=== PATIENT | female | born 1945 | race Caucasian/White ===

== ENCOUNTER 2018-05-12 14:48 | Emergency (ER) | payer MEDICARE, BC ==
[~2018-05-12] VITALS: Ht 165.1 cm; Wt 84.5 kg
[~2018-05-12 14:48] MED LIST: APIX5TAB3 PO; CARSR60C PO; FERR1TAB9 PO; LISI40TA4 PO; OMEP20CA10 PO
[2018-05-12] MEDS ORDERED: ondansetron 4mg rapidly disintigrating tab PO ONE (16:10)
[2018-05-12] MEDS ORDERED: acetaminophen 325mg tablet PO ONE (16:10)
[2018-05-12] MEDS ORDERED: morphine 4 MG/ML inj SYRINge IM ONE (17:10)
[2018-05-12 17:37] VITALS: BP 192/98
[2018-05-12] MEDS ORDERED: ONDA8TAB9 PO (17:44)
== END 2018-05-12 17:46 | disposition home or self-care (01) ==
LOC: ER 14:49
DX: S06.0X0A Concussion without loss of consciousness, initial encounter (principal); S00.33XA Contusion of nose, initial encounter; I10 Essential (primary) hypertension; J45.909 Unspecified asthma, uncomplicated; Z98.890 Other specified postprocedural states; Z79.899 Other long term (current) drug therapy; Z88.5 Allergy status to narcotic agent; W18.49XA Other slipping, tripping and stumbling without falling, initial encounter; Y93.89 Activity, other specified; Y92.091 Bathroom in other non-institutional residence as the place of occurrence of the external cause; Y99.8 Other external cause status
CPT/HCPCS: 70450; 72125; 96372; 99284; J2270

== ENCOUNTER 2020-07-24 10:15 | Emergency (ER) | payer MEDICARE, BC ==
[~2020-07-24] VITALS: Ht 165.1 cm; Wt 87.3 kg
[~2020-07-24 10:15] MED LIST changes: -OMEP20CA10 PO; +OMEP20CA15 PO; +ONDA8TAB9 PO
[2020-07-24] MEDS ORDERED: lisinopril 10 MG tablet PO ONE (11:05)
[2020-07-24] MEDS ORDERED: LISI10TA4 PO (11:07)
--- NOTE | 2020-07-24 11:24 | NUR ---
TAWANDA (SON) [phone] PLEASE GIVE UPDATE WHEN ABLE.
[2020-07-24 13:24] VITALS: BP 181/90
== END 2020-07-24 13:29 | disposition home or self-care (01) ==
LOC: ER 10:15
DX: S00.11XA Contusion of right eyelid and periocular area, initial encounter (principal); M25.531 Pain in right wrist; M25.561 Pain in right knee; I25.10 Atherosclerotic heart disease of native coronary artery without angina pectoris; I10 Essential (primary) hypertension; J45.909 Unspecified asthma, uncomplicated; F41.9 Anxiety disorder, unspecified; Z85.41 Personal history of malignant neoplasm of cervix uteri; Z98.890 Other specified postprocedural states; Z88.5 Allergy status to narcotic agent; Z79.899 Other long term (current) drug therapy; W18.39XA Other fall on same level, initial encounter; Y93.01 Activity, walking, marching and hiking; Y92.89 Other specified places as the place of occurrence of the external cause; Y99.8 Other external cause status
CPT/HCPCS: 29125; 70450; 70486; 72125; 73110; 73564; 99285

== ENCOUNTER 2021-01-07 15:16 | Emergency (ER) | payer MEDICARE, BC ==
[~2021-01-07] VITALS: Ht 165.1 cm; Wt 87.0 kg
[~2021-01-07 15:16] MED LIST changes: +LISI10TA27 PO; +LISI40TA13 PO; -LISI40TA4 PO
[2021-01-07] MEDS ORDERED: labetalol 20mg/4ml (5mg/ml) syringe IV ONE (16:40)
[2021-01-07 17:06] LABS: BASOPHILS # (AUTO) 0.1 X10'3 (0-0.2); BASOPHILS % (AUTO) 0.9 % (0-1); EOSINOPHILS # (AUTO) 0.3 X10'3 (0-0.9); EOSINOPHILS % (AUTO) 4.9 % (0-6); HEMATOCRIT 40.7 % (35.0-45.0); HEMOGLOBIN 13.2 g/dl (12.0-16.0); LYMPHOCYTES # (AUTO) 0.9 X10'3 (1.1-4.8); LYMPHOCYTES % (AUTO) 14.9 % (21-51); MEAN CORPUSCULAR HEMOGLOBIN 28.1 PG (27.0-31.0); MEAN CORPUSCULAR HGB CONC 32.4 g/dL (33.0-36.5); MEAN CORPUSCULAR VOLUME 86.7 FL (78-98); MEAN PLATELET VOLUME 8.9 FL (7.4-10.4); MONOCYTES # (AUTO) 0.5 X10'3 (0-0.9); MONOCYTES % (AUTO) 8.5 % (2-12); NEUTROPHILS # (AUTO) 4.4 X10'3 (1.8-7.7); NEUTROPHILS % (AUTO) 70.8 % (42-75); PLATELET COUNT 303 X10'3 (140-440); RED BLOOD COUNT 4.69 X10'6 (4.20-5.60); RED CELL DISTRIBUTION WIDTH 17.1 % (11.5-14.5); WHITE BLOOD COUNT 6.2 X10'3 (4.5-11.0)
[2021-01-07 17:13] LABS: ALANINE AMINOTRANSFERASE 16 U/L (12-78); ALBUMIN 4.1 G/DL (3.4-5.0); ALKALINE PHOSPHATASE 90 IU/L (46-116); ANION GAP 6 (8-16); ASPARTATE AMINO TRANSFERASE 18 U/L (10-37); BILIRUBIN,TOTAL 0.3 MG/DL (0.1-1.0); BLOOD UREA NITROGEN 15 MG/DL (7-18); BUN/CREATININE RATIO 19.5 (6.6-38.0); CALCIUM 9.5 MG/DL (8.5-10.1); CHLORIDE 104 MMOL/L (99-107); CREATININE 0.77 MG/DL (0.40-0.90); GLUCOSE 105 MG/DL (70-104); SODIUM 141 MMOL/L (135-145); TOTAL CARBON DIOXIDE 30.6 MMOL/L (24-32); TOTAL PROTEIN 8.3 G/DL (6.4-8.2); eGFR 73 ML/MIN
[2021-01-07] MEDS ORDERED: cloNIDine 0.1 mg tablet PO ONE (17:35)
[2021-01-07] MEDS ORDERED: morphine 4 MG/ML inj SYRINge IV ONE (17:40)
--- NOTE | 2021-01-07 17:42 | NUR ---
SCANNER IN ROOM 13 NOT WORKING
--- NOTE | 2021-01-07 18:05 | NUR ---
HEADCHES STARTED ABOUT 2 WEEKS AGO, USUALLY BETTER WITH OTC TYLENOL
[2021-01-07] MEDS ORDERED: famotidine/PF 10 mg/ml inj IV ONE (18:35)
[2021-01-07] MEDS ORDERED: ondansetron/PF 4mg/2ml inj IV ONE (18:45)
--- NOTE | 2021-01-07 18:51 | NUR ---
SIMON BONILLA INFORMED PATIETN IS NAUSEATED AND DIZZY FEELING, ORDERS
[2021-01-07] MEDS ORDERED: normal saline 1000ml 1,000 ML IV ONE ×2 (18:55→20:05)
--- NOTE | 2021-01-07 18:55 | NUR ---
PA AWARE OF BP, ORDERS RECEIVED
--- NOTE | 2021-01-07 20:05 | NUR ---
DISCUSSED CURRENT VITALS WITH MD VELARDE
[2021-01-07 21:25] VITALS: BP 131/71
== END 2021-01-07 21:27 | disposition home or self-care (01) ==
LOC: ER 15:17
DX: I10 Essential (primary) hypertension (principal); R51.9 Headache, unspecified; R11.0 Nausea; R06.02 Shortness of breath; R53.83 Other fatigue; I25.10 Atherosclerotic heart disease of native coronary artery without angina pectoris; J45.909 Unspecified asthma, uncomplicated; F41.9 Anxiety disorder, unspecified; Z85.41 Personal history of malignant neoplasm of cervix uteri; Z98.890 Other specified postprocedural states; Z88.5 Allergy status to narcotic agent; Z79.899 Other long term (current) drug therapy
CPT/HCPCS: 36415; 70450; 71045; 80053; 83880; 84484; 85025; 93005; 96361; 96374; 96375; 99285; J2270; J2405; J3490; J7030

== ENCOUNTER 2022-02-07 06:05 | Inpatient (IN) | payer MEDICARE, BC ==
[~2022-02-07] VITALS: Ht 162.6 cm; Wt 81.8 kg
[2022-02-07] MEDS ORDERED: morphine 4 MG/ML inj SYRINge IV ONE (06:10)
[2022-02-07] MEDS ORDERED: aspirin 81mg tab.chew PO ONE (06:10)
[2022-02-07] MEDS ORDERED: normal saline 1000ml 1,000 ML IV ONE (06:10)
[2022-02-07] MEDS ORDERED: diltiazem 5mg/ml 5ml inj. IV ONE (06:10)
[2022-02-07] MEDS ORDERED: heparin 10,000 units/1 ML INJ IV ONE (06:20)
[2022-02-07] MEDS ORDERED: heparin 25,000 UNIT/250ml bag 250 ML IV SCH (06:20)
[2022-02-07] MEDS ORDERED: heparin 10,000 units/1 ML INJ IV PRN (06:20)
[2022-02-07] MEDS ORDERED: fentaNYL/PF 50MCG/1 ML 2ML syringe IV ONE (06:25)
[2022-02-07] MEDS ORDERED: LIDOcaine 1% 30ml preserv. free vial ONE (06:35)
[2022-02-07] MEDS ORDERED: heparin 1,000unit/ml 10ml vial 10 ML ONE (06:35)
[2022-02-07] MEDS ORDERED: IOHEXOL 350 MG/ML INFUS..BTL 125ML IV ONE ×2 (06:36→07:19)
[2022-02-07 06:43] LABS: EOSINOPHILS # (AUTO) 0.2 X10'3 (0-0.9); EOSINOPHILS % (AUTO) 4.9 % (0-6); HEMATOCRIT 31.8 % (35.0-45.0); HEMOGLOBIN 10.1 g/dl (12.0-16.0); MEAN CORPUSCULAR HEMOGLOBIN 27.8 PG (27.0-31.0); MEAN CORPUSCULAR HGB CONC 31.8 g/dL (33.0-36.5); MEAN CORPUSCULAR VOLUME 87.3 FL (78-98); MEAN PLATELET VOLUME 8.4 FL (7.4-10.4); MONOCYTES # (AUTO) 0.5 X10'3 (0-0.9); NEUTROPHILS # (AUTO) 2.9 X10'3 (1.8-7.7); NEUTROPHILS % (AUTO) 62.1 % (42-75); PLATELET COUNT 220 X10'3 (140-440); RED BLOOD COUNT 3.64 X10'6 (4.20-5.60); RED CELL DISTRIBUTION WIDTH 18.1 % (11.5-14.5); WHITE BLOOD COUNT 4.6 X10'3 (4.5-11.0)
[2022-02-07] MEDS ORDERED: nitroGLYCERIN-Tridil 50MG/D5W 250 ML IV ONE (06:47)
[2022-02-07] MEDS ORDERED: fentaNYL/PF 50MCG/1 ML 2ML syringe ONE (06:47)
[2022-02-07] MEDS ORDERED: verapamil 2.5 mg/ml inj IV ONE (06:47)
[2022-02-07] MEDS ORDERED: midazolam 1 mg/ML 2ml injection ONE (06:47)
--- NOTE | 2022-02-07 06:53 | NUR ---
laboratory scientist RN's at bedside.
[2022-02-07 07:24] LABS: ALANINE AMINOTRANSFERASE 9 U/L (12-78); ALBUMIN 2.3 G/DL (3.4-5.0); ALKALINE PHOSPHATASE 38 IU/L (46-116); ASPARTATE AMINO TRANSFERASE 14 U/L (10-37); BILIRUBIN,TOTAL 0.1 MG/DL (0.1-1.0); BLOOD UREA NITROGEN 14 MG/DL (7-18); BUN/CREATININE RATIO 34.1 (6.6-38.0); CHLORIDE 117 MMOL/L (99-107); CREATININE 0.41 MG/DL (0.40-0.90); GLUCOSE 99 MG/DL (70-104); MAGNESIUM 1.3 MG/DL (1.5-2.4); TOTAL CARBON DIOXIDE 21.1 MMOL/L (24-32); TOTAL PROTEIN 4.7 G/DL (6.4-8.2); eGFR > 90 ML/MIN
[2022-02-07] MEDS ORDERED: ticagrelor 90mg tablet ONE (07:25)
[2022-02-07 07:35] LABS: ANION GAP 7 (8-16); SODIUM 145 MMOL/L (135-145)
[2022-02-07 07:39] LABS: POTASSIUM 2.6 MMOL/L (3.5-5.1)
[2022-02-07 07:40] LABS: CALCIUM 5.8 MG/DL (8.5-10.1)
[2022-02-07] MEDS ORDERED: potassium Cl 20mEq/100mL bag 0 ML IV ONE (07:41)
[2022-02-07] MEDS ORDERED: POTASSIUM BICARB 20meq eff tab 20 MEQ TABLET.EFF PO ONE (07:45)
[2022-02-07] MEDS ORDERED: heparin 10,000 units/1 ML INJ ONE (08:00)
[2022-02-07] MEDS ORDERED: heparin, porcine-25,000 units/D5-250ml premix IV ONE (08:00)
[2022-02-07] MEDS ORDERED: acetaminophen 325mg tablet PO PRN ×3 (08:45→09:50)
[2022-02-07] MEDS ORDERED: ondansetron/PF 4mg/2ml inj IV PRN (09:50)
[2022-02-07] MEDS ORDERED: POTASSIUM BICARB 20meq eff tab 20 MEQ TABLET.EFF PO PRN ×2 (09:50)
[2022-02-07] MEDS ORDERED: magnesium Cl slow-release 64mg tablet PO PRN (09:50)
[2022-02-07] MEDS ORDERED: magnesium hydroxide 30ml (MOM) UD suspension PO PRN (09:50)
[2022-02-07] MEDS ORDERED: magnesium 2GM in 50ml NS 50 ML IV PRN (09:50)
[2022-02-07] MEDS ORDERED: potassium CL 10mEq/100ml bag 100 ML IV PRN (09:50)
[2022-02-07] MEDS ORDERED: magnesium 4gm in 100ml NS 100 ML IV PRN (09:50)
[2022-02-07] MEDS ORDERED: mag hydrox/Alum hydrox/simeth 30ml oral suspension PO PRN (09:50)
[2022-02-07 10:57] LABS: ALANINE AMINOTRANSFERASE 9 U/L (12-78); ALBUMIN 3.4 G/DL (3.4-5.0); ALKALINE PHOSPHATASE 56 IU/L (46-116); ANION GAP 8 (8-16); ASPARTATE AMINO TRANSFERASE 15 U/L (10-37); BILIRUBIN,TOTAL 0.3 MG/DL (0.1-1.0); BLOOD UREA NITROGEN 14 MG/DL (7-18); BUN/CREATININE RATIO 31.1 (6.6-38.0); CALCIUM 8.3 MG/DL (8.5-10.1); CHLORIDE 106 MMOL/L (99-107); CREATININE 0.45 MG/DL (0.40-0.90); GLUCOSE 121 MG/DL (70-104); POTASSIUM 4.5 MMOL/L (3.5-5.1); SODIUM 139 MMOL/L (135-145); TOTAL CARBON DIOXIDE 25.3 MMOL/L (24-32); TOTAL PROTEIN 6.7 G/DL (6.4-8.2); eGFR > 90 ML/MIN
[2022-02-07 11:00] VITALS: BP 135/78
[2022-02-07 11:01] LABS: PHOSPHORUS 2.8 MG/DL (2.3-4.5)
[2022-02-07 11:16] LABS: CHOL/HDL RATIO 3.5 (0.00-4.99); CHOLESTEROL 169 MG/DL (0-200); HDL CHOLESTEROL 48 MG/DL (35-60); LDL CHOLESTEROL 102 MG/DL (50-100); TRIGLYCERIDES 54 MG/DL (20-135)
[2022-02-07 11:17] LABS: APTT 112 SECONDS (22-32)
--- NOTE | 2022-02-07 11:25 | NUR ---
ROOM 3026A LAB CALLED CRITICAL PTT 112 TROPONIN 461 BUT SHE JUST HAD CATH DONE FYI.
[2022-02-07] MEDS ORDERED: APIX5TAB3 PO (14:31)
[2022-02-07] MEDS ORDERED: ATOR20TA66 PO (14:31)
[2022-02-07] MEDS ORDERED: METO-395 PO (14:31)
[2022-02-07] MEDS ORDERED: ASPI81TA53 PO (14:31)
[2022-02-07] MEDS ORDERED: TICA90TA PO (14:31)
[2022-02-07 15:00] VITALS: BP 194/92
[2022-02-07] MEDS ORDERED: albuterol 2.5 MG/3 ML nebule NEB PRN (15:35)
[2022-02-07 18:00] VITALS: BP 150/90
--- NOTE | 2022-02-07 18:37 | NUR ---
Patient in room PCU 3026. I have received report from Hector MO and had the opportunity to ask questions and assume patient care.
[2022-02-07] MEDS: K and/or MAG REPLACEMENT MC SCH (20:00)
[2022-02-07] MEDS ORDERED: K and/or MAG REPLACEMENT MC SCH (20:00)
[2022-02-07] MEDS: ticagrelor 90mg tablet PO SCH (20:26)
[2022-02-07] MEDS: docusate sod 100mg capsule PO SCH (20:26)
[2022-02-07 22:00] VITALS: BP 151/90
[2022-02-08 02:00] VITALS: BP 133/85
[2022-02-08 06:00] VITALS: BP 134/82
--- NOTE | 2022-02-08 06:20 | NUR ---
Problems reprioritized. Patient report given, questions answered & plan of care reviewed with august gaona.
[2022-02-08 07:17] LABS: BASOPHILS % (AUTO) 0.8 % (0-1); EOSINOPHILS # (AUTO) 0.1 X10'3 (0-0.9); EOSINOPHILS % (AUTO) 2.4 % (0-6); HEMATOCRIT 38.9 % (35.0-45.0); HEMOGLOBIN 12.3 g/dl (12.0-16.0); LYMPHOCYTES # (AUTO) 0.5 X10'3 (1.1-4.8); LYMPHOCYTES % (AUTO) 11.7 % (21-51); MEAN CORPUSCULAR HEMOGLOBIN 27.6 PG (27.0-31.0); MEAN CORPUSCULAR HGB CONC 31.8 g/dL (33.0-36.5); MEAN CORPUSCULAR VOLUME 86.8 FL (78-98); MEAN PLATELET VOLUME 8.7 FL (7.4-10.4); MONOCYTES # (AUTO) 0.4 X10'3 (0-0.9); NEUTROPHILS # (AUTO) 3.6 X10'3 (1.8-7.7); NEUTROPHILS % (AUTO) 76.1 % (42-75); PLATELET COUNT 231 X10'3 (140-440); RED BLOOD COUNT 4.48 X10'6 (4.20-5.60); RED CELL DISTRIBUTION WIDTH 18.5 % (11.5-14.5); WHITE BLOOD COUNT 4.7 X10'3 (4.5-11.0)
[2022-02-08] MEDS ORDERED: pantoprazole 40mg Tablet.DR PO SCH (07:30)
[2022-02-08 07:31] LABS: ALANINE AMINOTRANSFERASE 14 U/L (12-78); ALBUMIN 3.4 G/DL (3.4-5.0); ALBUMIN/GLOBULIN RATIO 0.9 (1.1-1.5); ALKALINE PHOSPHATASE 56 IU/L (46-116); ANION GAP 8 (8-16); ASPARTATE AMINO TRANSFERASE 26 U/L (10-37); BILIRUBIN,TOTAL 0.3 MG/DL (0.1-1.0); BLOOD UREA NITROGEN 14 MG/DL (7-18); BUN/CREATININE RATIO 24.6 (6.6-38.0); CALCIUM 8.7 MG/DL (8.5-10.1); CHLORIDE 108 MMOL/L (99-107); CHOL/HDL RATIO 3.7 (0.00-4.99); CHOLESTEROL 257 MG/DL (0-200); CREATININE 0.57 MG/DL (0.40-0.90); GLUCOSE 108 MG/DL (70-104); HDL CHOLESTEROL 69 MG/DL (35-60); LDL CHOLESTEROL 146 MG/DL (50-100); MAGNESIUM 1.8 MG/DL (1.5-2.4); POTASSIUM 3.6 MMOL/L (3.5-5.1); SODIUM 143 MMOL/L (135-145); TOTAL CARBON DIOXIDE 26.7 MMOL/L (24-32); TRIGLYCERIDES 85 MG/DL (20-135); eGFR > 90 ML/MIN
[2022-02-08] MEDS: K and/or MAG REPLACEMENT MC SCH (07:38)
[2022-02-08] MEDS ORDERED: lisinopril 5mg tablet PO SCH (08:00)
[2022-02-08] MEDS ORDERED: metoprolol succinate 25mg (24-HOUR) SR. Tablet PO SCH (08:00)
[2022-02-08] MEDS ORDERED: aspirin 81mg tab.chew PO SCH (08:00)
[2022-02-08] MEDS ORDERED: atorvastatin 20mg tablet PO SCH ×2 (08:00)
[2022-02-08 08:13] VITALS: BP_SYST 134
[2022-02-08] MEDS: ticagrelor 90mg tablet PO SCH (08:13)
[2022-02-08] MEDS: docusate sod 100mg capsule PO SCH (08:14)
--- NOTE | 2022-02-08 14:09 | NUR ---
PAGER ID: [phone] MESSAGE: RE GREG JEAN CLAUDE [id number] PLEASE CALL RE DISCHARGE ORDERS. THANK YOU, TERRELL MANZANO
--- NOTE | 2022-02-18 09:58 | NUR ---
Case Management DC follow up:Spoke with Patient via telephone.S/P Denies Acute/continuous chest pain,emergent SOB, resp distress,hematuria,hematochezia,melena, unexplained bruising, fever, chills.Verbalizes bruising at radial cath site is fading, no signs or symptoms of infection, redness,warmth to touch, drainage.Verbalizes compliance with after care.Verbalizes understanding of new Rx:, why prescribed; continues/resumes current Rx as ordered.Verbalizes she has picked up all new medication that were prescribed. Verbalizes understanding of s/s that warrant 9-11/ER visit for further evaluation.Verbalizes she has scheduled appointment with her PCP Dr. Araujo 04/10/22.Verbalized she has not scheduled an appointment with Cardiac Rehab , declined telephone number;verbalizing she will schedule Cardiac Rehab after her appointment with her PCP.Verbalizes the staff and nurses were excellent.Needs met,questions/concerns addressed at DC;no further questions/concerns regarding recent hospital stay and /or DC status at this time.
[2022-02-19] MEDS ORDERED: APIX5TAB5 (23:16)
[2022-02-19] MEDS ORDERED: ALBU6.7H9 INH (23:20)
[2022-02-19] MEDS ORDERED: FLUT16SP2 BOTHNARES (23:20)
[2022-02-19] MEDS ORDERED: LORA10TA7 PO (23:20)
[2022-02-20] MEDS ORDERED: AMLO5TAB4 PO (13:53)
[2022-02-20] MEDS ORDERED: LOSA25TA96 PO (13:53)
== END 2022-02-08 14:42 | disposition home or self-care (01) | DRG 247 ==
LOC: ER 06:05 → PCU 3S 08:15
PROVIDERS: ADMIT Psychiatry & Neurology Neurology with Special Qualifications in Child Neurology; ATTEND Psychiatry & Neurology Neurology with Special Qualifications in Child Neurology
PROC: 4A023N7 Measurement of Cardiac Sampling and Pressure, Left Heart, Percutaneous Approach (ICD-10-PCS; principal; 2022-02-07)
PROC: 027035Z Dilation of Coronary Artery, One Artery with Two Drug-eluting Intraluminal Devices, Percutaneous Approach (ICD-10-PCS; 2022-02-07)
PROC: B2111ZZ Fluoroscopy of Multiple Coronary Arteries using Low Osmolar Contrast (ICD-10-PCS; 2022-02-07)
DX: I21.4 Non-ST elevation (NSTEMI) myocardial infarction (principal); E78.5 Hyperlipidemia, unspecified; E83.51 Hypocalcemia; E87.6 Hypokalemia; I10 Essential (primary) hypertension; I25.10 Atherosclerotic heart disease of native coronary artery without angina pectoris; E83.42 Hypomagnesemia; F41.9 Anxiety disorder, unspecified; K21.9 Gastro-esophageal reflux disease without esophagitis; I35.0 Nonrheumatic aortic (valve) stenosis; I48.0 Paroxysmal atrial fibrillation; J45.909 Unspecified asthma, uncomplicated; Z66 Do not resuscitate; Z79.01 Long term (current) use of anticoagulants; Z79.02 Long term (current) use of antithrombotics/antiplatelets; Z79.82 Long term (current) use of aspirin; Z79.899 Other long term (current) drug therapy; Z85.41 Personal history of malignant neoplasm of cervix uteri; Z90.710 Acquired absence of both cervix and uterus; Z88.5 Allergy status to narcotic agent; Z90.49 Acquired absence of other specified parts of digestive tract
CPT/HCPCS: 93306; 93454; 96365; 96366; 96375; 96376; 99291; C9606; 36415; 71045; 80053; 80061; 82330; 83036; 83735; 83880; 84100; 84484; 85025; 85610; 85730; 93005; 94640; 94760; 99152; 99153; A4620; A6258; C1725; C1751; C1769; C1874; C1894; G0378; J1644; J2250; J3010; J3480; J3490; J7030; Q9967

== ENCOUNTER 2022-02-27 09:23 | Emergency (ER) | payer MEDICARE, BC ==
[~2022-02-27] VITALS: Ht 165.1 cm; Wt 81.8 kg
[~2022-02-27 09:23] MED LIST changes: +ALBU6.7H9 INH; +AMLO5TAB4 PO; +ASPI81TA53 PO; +ATOR20TA66 PO; -CARSR60C PO; +FLUT16SP2 BOTHNARES; -LISI10TA27 PO; -LISI40TA13 PO; +LORA10TA7 PO; +LOSA25TA96 PO; +METO-395 PO; +TICA90TA PO
[2022-02-27 10:52] VITALS: BP 194/118
== END 2022-02-27 11:58 | disposition home or self-care (01) ==
LOC: ER 09:23
DX: R03.0 Elevated blood-pressure reading, without diagnosis of hypertension (principal); R06.02 Shortness of breath; I10 Essential (primary) hypertension; I25.10 Atherosclerotic heart disease of native coronary artery without angina pectoris; J45.909 Unspecified asthma, uncomplicated; Z87.410 Personal history of cervical dysplasia; Z79.82 Long term (current) use of aspirin; Z79.899 Other long term (current) drug therapy
CPT/HCPCS: 93005; 99283

== ENCOUNTER 2022-03-19 06:43 | Inpatient (IN) | payer MEDICARE, BC ==
[~2022-03-19] VITALS: Ht 165.1 cm; Wt 84.0 kg
[2022-03-19] VITALS (13 sets, daily range): BP systolic 122–171; BP diastolic 52–84
[2022-03-19] MEDS ORDERED: morphine 4 MG/ML inj SYRINge IV ONE (07:05)
[2022-03-19] MEDS ORDERED: ondansetron/PF 4mg/2ml inj IV ONE ×2 (07:10)
[2022-03-19] MEDS ORDERED: aspirin 81mg tab.chew PO ONE (07:10)
[2022-03-19] MEDS: metoprolol tartrate 1mg/ml inj IV ONE ×2 (07:10→09:07)
[2022-03-19] MEDS ORDERED: ticagrelor 90mg tablet PO SCH (07:10)
[2022-03-19] MEDS ORDERED: metoclopramide 5 mg/ml inj IV ONE (07:10)
--- NOTE | 2022-03-19 07:20 | NUR ---
dr. bates made aware of decreased bp after morphine admin. no new orders at this time. pt appears in less pain after morphine, will closely monitor.
[2022-03-19 07:51] LABS: BASOPHILS # (AUTO) 0.1 X10'3 (0-0.2); BASOPHILS % (AUTO) 1.2 % (0-1); EOSINOPHILS # (AUTO) 0.3 X10'3 (0-0.9); EOSINOPHILS % (AUTO) 5.2 % (0-6); HEMATOCRIT 41.4 % (35.0-45.0); HEMOGLOBIN 13.4 g/dl (12.0-16.0); LYMPHOCYTES # (AUTO) 0.9 X10'3 (1.1-4.8); LYMPHOCYTES % (AUTO) 17.7 % (21-51); MEAN CORPUSCULAR HEMOGLOBIN 27.5 PG (27.0-31.0); MEAN CORPUSCULAR HGB CONC 32.3 g/dL (33.0-36.5); MEAN PLATELET VOLUME 9.3 FL (7.4-10.4); MONOCYTES # (AUTO) 0.5 X10'3 (0-0.9); MONOCYTES % (AUTO) 9.8 % (2-12); NEUTROPHILS # (AUTO) 3.3 X10'3 (1.8-7.7); NEUTROPHILS % (AUTO) 66.1 % (42-75); PLATELET COUNT 237 X10'3 (140-440); RED BLOOD COUNT 4.87 X10'6 (4.20-5.60); RED CELL DISTRIBUTION WIDTH 16.8 % (11.5-14.5)
[2022-03-19] MEDS ORDERED: heparin 10,000 units/1 ML INJ ONE (08:00)
[2022-03-19] MEDS ORDERED: heparin, porcine-25,000 units/D5-250ml premix IV ONE (08:00)
[2022-03-19 08:10] LABS: ALANINE AMINOTRANSFERASE 23 U/L (12-78); ALBUMIN 3.4 G/DL (3.4-5.0); ALBUMIN/GLOBULIN RATIO 0.9 (1.1-1.5); ALKALINE PHOSPHATASE 69 IU/L (46-116); ANION GAP 6 (8-16); ASPARTATE AMINO TRANSFERASE 24 U/L (10-37); BILIRUBIN,TOTAL 0.2 MG/DL (0.1-1.0); BLOOD UREA NITROGEN 14 MG/DL (7-18); BUN/CREATININE RATIO 21.5 (6.6-38.0); CALCIUM 8.8 MG/DL (8.5-10.1); CHLORIDE 108 MMOL/L (99-107); CREATININE 0.65 MG/DL (0.40-0.90); GLUCOSE 112 MG/DL (70-104); SODIUM 141 MMOL/L (135-145); TOTAL CARBON DIOXIDE 26.9 MMOL/L (24-32); TOTAL PROTEIN 7.2 G/DL (6.4-8.2); eGFR 88 ML/MIN
--- NOTE | 2022-03-19 08:30 | NUR ---
pt's blood pressure remains low, dr. bates aware and at bedside. fluid bolus ordered. repeat ekg ordered and done.
[2022-03-19] MEDS ORDERED: normal saline 1000ML IV soln IVB ONE ×2 (08:40)
--- NOTE | 2022-03-19 08:40 | NUR ---
stemi alert called.
[2022-03-19] MEDS ORDERED: heparin 10,000 units/1 ML INJ IV ONE (08:55)
[2022-03-19] MEDS ORDERED: heparin 10,000 units/1 ML INJ IV PRN (08:55)
--- NOTE | 2022-03-19 08:56 | NUR ---
Catherine painting in ED - 03/19/22 at 0906 by ROSARIO verbal order from dr. bates for 900u/hr heparin gtt and 4000u heparin bolus. candelaria gonsales witnessed admin.
--- NOTE | 2022-03-19 09:06 | NUR ---
paint laboratory technician consents signed and at bedside. pt verbalized that she is a DNR and does not want to receive blood product. dr. bates made aware and will put order in.
--- NOTE | 2022-03-19 09:07 | NUR ---
metorolol given late d/t bp remaining low. bp now 125/82.
[2022-03-19] MEDS ORDERED: APIX2.5T PO (09:14)
[2022-03-19] MEDS ORDERED: FERR325T28 PO (09:14)
--- NOTE | 2022-03-19 09:30 | NUR ---
dr. platt at bedside
--- NOTE | 2022-03-19 09:37 | NUR ---
dr. platt made aware of additional 4000u heparin bolus.
[2022-03-19 09:39] LABS: BASOPHILS # (AUTO) 0.1 X10'3 (0-0.2); BASOPHILS % (AUTO) 0.8 % (0-1); EOSINOPHILS # (AUTO) 0.2 X10'3 (0-0.9); EOSINOPHILS % (AUTO) 3.1 % (0-6); HEMATOCRIT 40.1 % (35.0-45.0); HEMOGLOBIN 12.8 g/dl (12.0-16.0); LYMPHOCYTES # (AUTO) 0.8 X10'3 (1.1-4.8); LYMPHOCYTES % (AUTO) 12.7 % (21-51); MEAN CORPUSCULAR HEMOGLOBIN 27.5 PG (27.0-31.0); MEAN CORPUSCULAR VOLUME 86.1 FL (78-98); MEAN PLATELET VOLUME 9.1 FL (7.4-10.4); MONOCYTES # (AUTO) 0.5 X10'3 (0-0.9); MONOCYTES % (AUTO) 7.6 % (2-12); NEUTROPHILS # (AUTO) 4.9 X10'3 (1.8-7.7); NEUTROPHILS % (AUTO) 75.8 % (42-75); PLATELET COUNT 222 X10'3 (140-440); RED BLOOD COUNT 4.65 X10'6 (4.20-5.60); RED CELL DISTRIBUTION WIDTH 16.5 % (11.5-14.5); WHITE BLOOD COUNT 6.5 X10'3 (4.5-11.0)
[2022-03-19] MEDS ORDERED: POTASSIUM BICARB 20meq eff tab 20 MEQ TABLET.EFF PO PRN ×2 (09:45)
[2022-03-19] MEDS ORDERED: magnesium hydroxide 30ml (MOM) UD suspension PO PRN (09:45)
[2022-03-19] MEDS ORDERED: morphine 4 MG/ML inj SYRINge IV PRN (09:45)
[2022-03-19] MEDS ORDERED: acetaminophen 325mg tablet PO PRN ×2 (09:45)
[2022-03-19 09:54] LABS: APTT 26 SECONDS (22-32)
[2022-03-19] MEDS: heparin 25,000 UNIT/250ml bag 250 ML IV SCH ×2 (09:58→16:50)
--- NOTE | 2022-03-19 10:15 | NUR ---
telephone repor to candelaria dunn.
--- NOTE | 2022-03-19 11:14 | NUR ---
Dr. Williams Elizabeth called and notified on critical Troponin of 56 up from 18. Patient's vital signs stable.
[2022-03-19] MEDS ORDERED: albuterol 2.5 MG/3 ML nebule NEB SCH (16:00)
[2022-03-19] MEDS ORDERED: pantoprazole 40mg Tablet.DR PO PRN (16:00)
[2022-03-19] MEDS ORDERED: fluticasone nasal spray 16GM bottle NS SCH (16:00)
[2022-03-19] MEDS ORDERED: loratadine 10mg tablet PO SCH (16:00)
[2022-03-19] MEDS ORDERED: ASPI-1397 PO (16:01)
[2022-03-19] MEDS ORDERED: LOSA25TA41 PO (16:01)
[2022-03-19] MEDS ORDERED: HYDR12.55 PO (16:01)
[2022-03-19] MEDS ORDERED: TICA90TA2 PO (16:01)
[2022-03-19] MEDS ORDERED: AMLO5TAB16 PO (16:01)
[2022-03-19] MEDS ORDERED: ATOR-2 PO (16:01)
[2022-03-19 16:31] LABS: APTT 43 SECONDS (22-32)
[2022-03-19] MEDS ORDERED: labetalol 20mg/4ml (5mg/ml) syringe IV PRN (17:30)
--- NOTE | 2022-03-19 18:30 | NUR ---
Patient in room CICU 2013. I have received report from JOSE JUAN Pop and had the opportunity to ask questions and assume patient care.
[2022-03-19] MEDS: sodium chloride 0.45% 1,000 ML IV SCH (19:27)
[2022-03-19] MEDS: metoprolol tartrate 25mg tablet PO SCH (20:46)
[2022-03-19 23:55] LABS: APTT 79 SECONDS (22-32)
[2022-03-20] VITALS (13 sets, daily range): BP systolic 128–177; BP diastolic 58–103
[2022-03-20] MEDS: metoprolol tartrate 25mg tablet PO SCH ×2 (02:15→08:45)
[2022-03-20] MEDS: sodium chloride 0.45% 1,000 ML IV SCH ×3 (02:15→20:06)
[2022-03-20] MEDS ORDERED: nitroGLYCERIN-Tridil 50MG/D5W 250 ML IV ONE (06:04)
[2022-03-20] MEDS ORDERED: verapamil 2.5 mg/ml inj IV ONE (06:04)
[2022-03-20] MEDS ORDERED: midazolam 1 mg/ML 2ml injection ONE (06:04)
[2022-03-20] MEDS ORDERED: LIDOcaine 1%/PF 5ML 10 MG/ML VIAL ONE (06:04)
[2022-03-20] MEDS ORDERED: fentaNYL/PF 50MCG/1 ML 2ML syringe ONE (06:05)
[2022-03-20] MEDS ORDERED: iohexol 350MG/ML 100ml bottle IV ONE ×2 (06:05→08:00)
[2022-03-20] MEDS ORDERED: heparin 1,000unit/ml 10ml vial 10 ML ONE (06:05)
[2022-03-20 06:08] LABS: BASOPHILS % (AUTO) 0.9 % (0-1); EOSINOPHILS # (AUTO) 0.2 X10'3 (0-0.9); EOSINOPHILS % (AUTO) 3.9 % (0-6); HEMATOCRIT 38.2 % (35.0-45.0); HEMOGLOBIN 12.6 g/dl (12.0-16.0); LYMPHOCYTES # (AUTO) 0.8 X10'3 (1.1-4.8); MEAN CORPUSCULAR HEMOGLOBIN 27.9 PG (27.0-31.0); MEAN CORPUSCULAR HGB CONC 33.1 g/dL (33.0-36.5); MEAN CORPUSCULAR VOLUME 84.4 FL (78-98); MONOCYTES # (AUTO) 0.5 X10'3 (0-0.9); MONOCYTES % (AUTO) 9.3 % (2-12); NEUTROPHILS # (AUTO) 3.4 X10'3 (1.8-7.7); NEUTROPHILS % (AUTO) 69.9 % (42-75); PLATELET COUNT 190 X10'3 (140-440); RED BLOOD COUNT 4.52 X10'6 (4.20-5.60); RED CELL DISTRIBUTION WIDTH 16.6 % (11.5-14.5); WHITE BLOOD COUNT 4.9 X10'3 (4.5-11.0)
[2022-03-20 06:11] LABS: APTT 40 SECONDS (22-32)
--- NOTE | 2022-03-20 06:14 | NUR ---
Problems reprioritized. Patient report given, questions answered & plan of care reviewed with JOSE JUAN Pop.
--- NOTE | 2022-03-20 06:15 | NUR ---
Patient in room CICU 2013. I have received report from JOSE JUAN Lara and had the opportunity to ask questions and assume patient care.
[2022-03-20 06:25] LABS: ANION GAP 6 (8-16); BILIRUBIN,TOTAL 0.3 MG/DL (0.1-1.0); BLOOD UREA NITROGEN 12 MG/DL (7-18); BUN/CREATININE RATIO 19.4 (6.6-38.0); CALCIUM 8.6 MG/DL (8.5-10.1); CHLORIDE 108 MMOL/L (99-107); CREATININE 0.62 MG/DL (0.40-0.90); GLUCOSE 102 MG/DL (70-104); MAGNESIUM 1.9 MG/DL (1.5-2.4); PHOSPHORUS 3.3 MG/DL (2.3-4.5); POTASSIUM 3.6 MMOL/L (3.5-5.1); SODIUM 143 MMOL/L (135-145); TOTAL CARBON DIOXIDE 28.6 MMOL/L (24-32); TOTAL PROTEIN 6.5 G/DL (6.4-8.2); eGFR > 90 ML/MIN
[2022-03-20 06:26] LABS: ALANINE AMINOTRANSFERASE 23 U/L (12-78); ALBUMIN/GLOBULIN RATIO 0.9 (1.1-1.5); ALKALINE PHOSPHATASE 63 IU/L (46-116); ASPARTATE AMINO TRANSFERASE 26 U/L (10-37)
--- NOTE | 2022-03-20 06:30 | NUR ---
labor economics professor staff Gosia here to take pt for heart cath, tx per W/C
[2022-03-20] MEDS ORDERED: LIDOcaine 1% 30ml preserv. free vial ONE (06:48)
[2022-03-20] MEDS: ferrous sulfate 325mg tablet PO SCH (08:45)
[2022-03-20] MEDS ORDERED: cyclobenzaprine 10mg tablet PO PRN (10:05)
[2022-03-20] MEDS ORDERED: LIDOcaine 2% 10ml TOPICAL JELLY (Urojet) TP ONE (13:45)
--- NOTE | 2022-03-20 14:45 | NUR ---
Received report from JOSE JUAN Amin. Patient arrived to floor. Stable. Patient was in ICU, so any medications not given/assessed prior to this time uncharted.
--- NOTE | 2022-03-20 14:54 | NUR ---
Transferred to 3013a via bed report off to myra MANZANO
[2022-03-20] MEDS: K and/or MAG REPLACEMENT MC SCH (15:00)
[2022-03-20] MEDS: LIDOcaine 5% patch TP SCH (15:11)
--- NOTE | 2022-03-20 18:13 | NUR ---
Problems reprioritized. Patient report given, questions answered & plan of care reviewed with JOSE JUAN Frank.
--- NOTE | 2022-03-20 18:15 | NUR ---
Patient in room PCU 3013. I have received report from Talia MANZANO and had the opportunity to ask questions and assume patient care.
[2022-03-20] MEDS: ticagrelor 90mg tablet PO SCH (20:07)
[2022-03-20] MEDS: ondansetron/PF 4mg/2ml inj IV PRN (23:41)
[2022-03-21] MEDS: ondansetron/PF 4mg/2ml inj IV PRN (00:52)
[2022-03-21 02:00] VITALS: BP 146/70
[2022-03-21] MEDS: morphine 2 MG/ML inj. syringe IV PRN ×3 (02:28→20:57)
--- NOTE | 2022-03-21 05:37 | NUR ---
F/C was discontinued at 05:15 AM, pt was educated.
[2022-03-21 06:00] VITALS: BP 129/76
--- NOTE | 2022-03-21 06:34 | NUR ---
Problems reprioritized. Patient report given, questions answered & plan of care reviewed with Doreen MANZANO.
--- NOTE | 2022-03-21 06:45 | NUR ---
Patient in room PCU 3013. I have received report from JOSE JUAN Frank and had the opportunity to ask questions and assume patient care.
[2022-03-21 07:57] LABS: BASOPHILS % (AUTO) 0.3 % (0-1); EOSINOPHILS # (AUTO) 0.1 X10'3 (0-0.9); EOSINOPHILS % (AUTO) 1.2 % (0-6); HEMATOCRIT 34.3 % (35.0-45.0); HEMOGLOBIN 11.3 g/dl (12.0-16.0); LYMPHOCYTES # (AUTO) 0.7 X10'3 (1.1-4.8); LYMPHOCYTES % (AUTO) 10.3 % (21-51); MEAN CORPUSCULAR HEMOGLOBIN 27.7 PG (27.0-31.0); MEAN CORPUSCULAR HGB CONC 32.8 g/dL (33.0-36.5); MEAN CORPUSCULAR VOLUME 84.4 FL (78-98); MEAN PLATELET VOLUME 9.2 FL (7.4-10.4); MONOCYTES # (AUTO) 0.7 X10'3 (0-0.9); NEUTROPHILS # (AUTO) 5.2 X10'3 (1.8-7.7); NEUTROPHILS % (AUTO) 78.2 % (42-75); PLATELET COUNT 198 X10'3 (140-440); RED BLOOD COUNT 4.07 X10'6 (4.20-5.60); RED CELL DISTRIBUTION WIDTH 16.1 % (11.5-14.5); WHITE BLOOD COUNT 6.7 X10'3 (4.5-11.0)
[2022-03-21] MEDS: HYDROchlorothiazide 12.5mg capsule PO SCH (08:00)
[2022-03-21] MEDS: K and/or MAG REPLACEMENT MC SCH (08:00)
[2022-03-21] MEDS: metoprolol succinate 25mg (24-HOUR) SR. Tablet PO SCH ×2 (08:00→20:43)
[2022-03-21] MEDS: LIDOcaine 5% patch TP SCH (08:00)
[2022-03-21 08:19] LABS: ALANINE AMINOTRANSFERASE 19 U/L (12-78); ALBUMIN 2.8 G/DL (3.4-5.0); ALBUMIN/GLOBULIN RATIO 0.8 (1.1-1.5); ALKALINE PHOSPHATASE 60 IU/L (46-116); ANION GAP 7 (8-16); ASPARTATE AMINO TRANSFERASE 19 U/L (10-37); BILIRUBIN,TOTAL 0.4 MG/DL (0.1-1.0); BLOOD UREA NITROGEN 12 MG/DL (7-18); BUN/CREATININE RATIO 19.4 (6.6-38.0); CALCIUM 8.5 MG/DL (8.5-10.1); CHLORIDE 106 MMOL/L (99-107); CREATININE 0.62 MG/DL (0.40-0.90); GLUCOSE 99 MG/DL (70-104); MAGNESIUM 1.8 MG/DL (1.5-2.4); PHOSPHORUS 3.8 MG/DL (2.3-4.5); POTASSIUM 3.7 MMOL/L (3.5-5.1); SODIUM 141 MMOL/L (135-145); TOTAL PROTEIN 6.2 G/DL (6.4-8.2); eGFR > 90 ML/MIN
[2022-03-21] MEDS: ferrous sulfate 325mg tablet PO SCH (09:58)
[2022-03-21] MEDS: losartan 25mg tablet PO SCH (10:02)
[2022-03-21] MEDS: aspirin 81mg, enteric-coated 1 TAB TABLET.DR PO SCH (10:03)
[2022-03-21] MEDS: amLODIPine 5mg tablet PO SCH (10:03)
[2022-03-21] MEDS: ticagrelor 90mg tablet PO SCH ×2 (10:03→20:43)
[2022-03-21] MEDS: atorvastatin 20mg tablet PO SCH (10:04)
[2022-03-21] MEDS: heparin 25,000 UNIT/250ml bag 250 ML IV SCH (10:55)
[2022-03-21 11:00] VITALS: BP 122/75
[2022-03-21 15:00] VITALS: BP 136/82
[2022-03-21] MEDS: sodium chloride 0.45% 1,000 ML IV SCH (15:05)
[2022-03-21 18:30] VITALS: BP 170/76
--- NOTE | 2022-03-21 18:40 | NUR ---
Patient in room PCU 3013A. I have received report from Kalyn MANZANO and had the opportunity to ask questions and assume patient care.
--- NOTE | 2022-03-21 19:22 | NUR ---
Problems reprioritized. Patient report given, questions answered & plan of care reviewed with JOSE JUAN Shaw.
[2022-03-21 22:00] VITALS: BP 149/81
[2022-03-22 02:00] VITALS: BP 167/86
[2022-03-22] MEDS: sodium chloride 0.45% 1,000 ML IV SCH (04:39)
[2022-03-22 06:00] VITALS: BP 147/79
[2022-03-22 07:12] LABS: BASOPHILS % (AUTO) 0.5 % (0-1); EOSINOPHILS # (AUTO) 0.2 X10'3 (0-0.9); EOSINOPHILS % (AUTO) 3.5 % (0-6); HEMATOCRIT 37.8 % (35.0-45.0); HEMOGLOBIN 12.3 g/dl (12.0-16.0); LYMPHOCYTES # (AUTO) 0.7 X10'3 (1.1-4.8); LYMPHOCYTES % (AUTO) 9.9 % (21-51); MEAN CORPUSCULAR HEMOGLOBIN 27.9 PG (27.0-31.0); MEAN CORPUSCULAR HGB CONC 32.5 g/dL (33.0-36.5); MEAN CORPUSCULAR VOLUME 85.9 FL (78-98); MEAN PLATELET VOLUME 8.9 FL (7.4-10.4); MONOCYTES # (AUTO) 0.7 X10'3 (0-0.9); MONOCYTES % (AUTO) 9.6 % (2-12); NEUTROPHILS # (AUTO) 5.2 X10'3 (1.8-7.7); NEUTROPHILS % (AUTO) 76.5 % (42-75); PLATELET COUNT 196 X10'3 (140-440); RED CELL DISTRIBUTION WIDTH 16.1 % (11.5-14.5); WHITE BLOOD COUNT 6.8 X10'3 (4.5-11.0)
[2022-03-22 07:22] LABS: ALANINE AMINOTRANSFERASE 23 U/L (12-78); ALBUMIN 3.2 G/DL (3.4-5.0); ALBUMIN/GLOBULIN RATIO 0.8 (1.1-1.5); ALKALINE PHOSPHATASE 69 IU/L (46-116); ANION GAP 9 (8-16); ASPARTATE AMINO TRANSFERASE 20 U/L (10-37); BILIRUBIN,TOTAL 0.5 MG/DL (0.1-1.0); BLOOD UREA NITROGEN 11 MG/DL (7-18); BUN/CREATININE RATIO 19.3 (6.6-38.0); CALCIUM 8.5 MG/DL (8.5-10.1); CHLORIDE 106 MMOL/L (99-107); CREATININE 0.57 MG/DL (0.40-0.90); GLUCOSE 107 MG/DL (70-104); SODIUM 142 MMOL/L (135-145); TOTAL CARBON DIOXIDE 27.4 MMOL/L (24-32); eGFR > 90 ML/MIN
[2022-03-22] MEDS: ferrous sulfate 325mg tablet PO SCH (07:51)
[2022-03-22] MEDS: LIDOcaine 5% patch TP SCH ×2 (07:51→07:57)
[2022-03-22] MEDS: aspirin 81mg, enteric-coated 1 TAB TABLET.DR PO SCH (07:54)
[2022-03-22] MEDS: ticagrelor 90mg tablet PO SCH (07:54)
[2022-03-22] MEDS: amLODIPine 5mg tablet PO SCH (07:54)
[2022-03-22] MEDS: atorvastatin 20mg tablet PO SCH (07:55)
[2022-03-22] MEDS: losartan 25mg tablet PO SCH (07:55)
[2022-03-22] MEDS: HYDROchlorothiazide 12.5mg capsule PO SCH (07:56)
[2022-03-22] MEDS: K and/or MAG REPLACEMENT MC SCH (08:00)
[2022-03-22] MEDS: heparin 25,000 UNIT/250ml bag 250 ML IV SCH (09:30)
[2022-03-22] MEDS: ondansetron/PF 4mg/2ml inj IV PRN (10:52)
[2022-03-22] MEDS: morphine 2 MG/ML inj. syringe IV PRN (10:53)
[2022-03-22 11:00] VITALS: BP 189/92
--- NOTE | 2022-03-22 14:02 | NUR ---
Pt discharged. Education and follow up instructions provided.
== END 2022-03-22 13:40 | disposition home health service (06) | DRG 287 ==
LOC: ER 06:43 → ED HOLD 10:01 → CICU 2S 10:41 → PCU 3S 03-20 14:47
PROVIDERS: ADMIT Internal Medicine Critical Care Medicine; ATTEND Internal Medicine Critical Care Medicine
PROC: 4A023N7 Measurement of Cardiac Sampling and Pressure, Left Heart, Percutaneous Approach (ICD-10-PCS; principal; 2022-03-20)
PROC: B2111ZZ Fluoroscopy of Multiple Coronary Arteries using Low Osmolar Contrast (ICD-10-PCS; 2022-03-20)
DX: I25.110 Atherosclerotic heart disease of native coronary artery with unstable angina pectoris (principal); I48.20 Chronic atrial fibrillation, unspecified; I10 Essential (primary) hypertension; J45.909 Unspecified asthma, uncomplicated; D50.9 Iron deficiency anemia, unspecified; Z20.822 Contact with and (suspected) exposure to COVID-19; E78.5 Hyperlipidemia, unspecified; E07.9 Disorder of thyroid, unspecified; F41.9 Anxiety disorder, unspecified; K21.9 Gastro-esophageal reflux disease without esophagitis; M54.50 Low back pain, unspecified; R77.8 Other specified abnormalities of plasma proteins; G89.29 Other chronic pain; Z79.01 Long term (current) use of anticoagulants; Z85.41 Personal history of malignant neoplasm of cervix uteri; Z95.5 Presence of coronary angioplasty implant and graft; Z88.5 Allergy status to narcotic agent; Z90.49 Acquired absence of other specified parts of digestive tract; Z79.899 Other long term (current) drug therapy
CPT/HCPCS: 36217; 36415; 71045; 80053; 83735; 83880; 84100; 84484; 85025; 85610; 85730; 87081; 93005; 93308; 93454; 94760; 99152; 99153; 99291; A4314; A4620; A5120; A5200; A6213; A6258; C1769; C1894; G0378; J1644; J2250; J2270; J2405; J2765; J3010; J3490; J7030; Q9967

== ENCOUNTER 2022-04-17 12:54 | Emergency (ER) | payer MEDICARE, BC ==
[~2022-04-17] VITALS: Ht 165.1 cm; Wt 8.4 kg
[~2022-04-17 12:54] MED LIST changes: +AMLO5TAB16 PO; -AMLO5TAB4 PO; +APIX2.5T PO; -APIX5TAB3 PO; +ASPI-1397 PO; -ASPI81TA53 PO; +ATOR-2 PO; -ATOR20TA66 PO; -FERR1TAB9 PO; +FERR325T28 PO; +LOSA25TA41 PO; -LOSA25TA96 PO; -ONDA8TAB9 PO; -TICA90TA PO; +TICA90TA2 PO
[2022-04-17] MEDS ORDERED: nitroGLYCERIN 0.4mg/hour patch TD ONE (13:05)
[2022-04-17] MEDS ORDERED: metoprolol tartrate 1mg/ml inj IV ONE (13:05)
[2022-04-17 14:00] LABS: BASOPHILS % (AUTO) 1.1 % (0-1); EOSINOPHILS # (AUTO) 0.1 X10'3 (0-0.9); EOSINOPHILS % (AUTO) 3.4 % (0-6); HEMATOCRIT 40.3 % (35.0-45.0); HEMOGLOBIN 13.1 g/dl (12.0-16.0); LYMPHOCYTES # (AUTO) 0.8 X10'3 (1.1-4.8); LYMPHOCYTES % (AUTO) 19.1 % (21-51); MEAN CORPUSCULAR HEMOGLOBIN 28.7 PG (27.0-31.0); MEAN CORPUSCULAR HGB CONC 32.5 g/dL (33.0-36.5); MEAN CORPUSCULAR VOLUME 88.3 FL (78-98); MONOCYTES # (AUTO) 0.5 X10'3 (0-0.9); MONOCYTES % (AUTO) 11.4 % (2-12); NEUTROPHILS # (AUTO) 2.9 X10'3 (1.8-7.7); PLATELET COUNT 222 X10'3 (140-440); RED BLOOD COUNT 4.56 X10'6 (4.20-5.60); RED CELL DISTRIBUTION WIDTH 16.9 % (11.5-14.5); WHITE BLOOD COUNT 4.4 X10'3 (4.5-11.0)
[2022-04-17 14:07] LABS: ALANINE AMINOTRANSFERASE 13 U/L (12-78); ALBUMIN 3.4 G/DL (3.4-5.0); ALBUMIN/GLOBULIN RATIO 0.9 (1.1-1.5); ALKALINE PHOSPHATASE 68 IU/L (46-116); ANION GAP 9 (8-16); ASPARTATE AMINO TRANSFERASE 14 U/L (10-37); BILIRUBIN,TOTAL 0.4 MG/DL (0.1-1.0); BLOOD UREA NITROGEN 19 MG/DL (7-18); CALCIUM 8.7 MG/DL (8.5-10.1); CHLORIDE 107 MMOL/L (99-107); CREATININE 0.76 MG/DL (0.40-0.90); GLUCOSE 91 MG/DL (70-104); SODIUM 142 MMOL/L (135-145); TOTAL CARBON DIOXIDE 26.1 MMOL/L (24-32); TOTAL PROTEIN 7.1 G/DL (6.4-8.2); eGFR 74 ML/MIN
--- NOTE | 2022-04-17 15:38 | NUR ---
RECEIVED THIS 76YR OLD FEMALE PATIENT FROM THE HALLWAY INTO [facility]. SHE IS AWAKE, ALERT AND ORIENTEDX4. ON ROOM AIR, NO FORM OF DISTRESS. SB ON MONITOR, HR IN MIDS 50S. BP IS STABLE,. PT DENIED ANY ANGINAL PAIN. SAFETY MAINTAINED. MONITORING ONGOING
[2022-04-17 17:03] VITALS: BP 135/81
== END 2022-04-17 17:18 | disposition home or self-care (01) ==
LOC: ER 12:55
DX: I48.91 Unspecified atrial fibrillation (principal); R07.89 Other chest pain; I10 Essential (primary) hypertension; J45.909 Unspecified asthma, uncomplicated; Z90.49 Acquired absence of other specified parts of digestive tract; Z88.5 Allergy status to narcotic agent
CPT/HCPCS: 36415; 71045; 80053; 83735; 83880; 84484; 85025; 93005; 96374; 99285; J3490

== ENCOUNTER 2022-05-19 01:40 | Emergency (ER) | payer MEDICARE, BC ==
[~2022-05-19] VITALS: Ht 165.1 cm; Wt 84.1 kg
[2022-05-19] MEDS ORDERED: fentaNYL/PF 50MCG/1 ML 2ML syringe IV ONE (02:50)
[2022-05-19 02:51] LABS: BASOPHILS # (AUTO) 0.1 X10'3 (0-0.2); BASOPHILS % (AUTO) 1.1 % (0-1); EOSINOPHILS # (AUTO) 0.3 X10'3 (0-0.9); EOSINOPHILS % (AUTO) 5.9 % (0-6); HEMATOCRIT 37.5 % (35.0-45.0); HEMOGLOBIN 12.4 g/dl (12.0-16.0); LYMPHOCYTES % (AUTO) 18.4 % (21-51); MEAN CORPUSCULAR HEMOGLOBIN 29.7 PG (27.0-31.0); MEAN CORPUSCULAR HGB CONC 33.1 g/dL (33.0-36.5); MEAN CORPUSCULAR VOLUME 89.8 FL (78-98); MEAN PLATELET VOLUME 9.4 FL (7.4-10.4); MONOCYTES # (AUTO) 0.6 X10'3 (0-0.9); MONOCYTES % (AUTO) 11.4 % (2-12); NEUTROPHILS # (AUTO) 3.6 X10'3 (1.8-7.7); NEUTROPHILS % (AUTO) 63.2 % (42-75); PLATELET COUNT 201 X10'3 (140-440); RED BLOOD COUNT 4.18 X10'6 (4.20-5.60); RED CELL DISTRIBUTION WIDTH 17.5 % (11.5-14.5); WHITE BLOOD COUNT 5.7 X10'3 (4.5-11.0)
[2022-05-19 02:58] LABS: ALANINE AMINOTRANSFERASE 17 U/L (12-78); ALBUMIN 3.2 G/DL (3.4-5.0); ALKALINE PHOSPHATASE 65 IU/L (46-116); ANION GAP 9 (8-16); ASPARTATE AMINO TRANSFERASE 16 U/L (10-37); BILIRUBIN,TOTAL 0.3 MG/DL (0.1-1.0); BLOOD UREA NITROGEN 20 MG/DL (7-18); CALCIUM 8.2 MG/DL (8.5-10.1); CHLORIDE 110 MMOL/L (99-107); CREATININE 0.77 MG/DL (0.40-0.90); GLUCOSE 131 MG/DL (70-104); POTASSIUM 3.1 MMOL/L (3.5-5.1); SODIUM 144 MMOL/L (135-145); TOTAL CARBON DIOXIDE 25.3 MMOL/L (24-32); TOTAL PROTEIN 6.4 G/DL (6.4-8.2); eGFR 73 ML/MIN
[2022-05-19] MEDS ORDERED: POTASSIUM BICARB 20meq eff tab 20 MEQ TABLET.EFF PO ONE (03:45)
[2022-05-19] MEDS ORDERED: normal saline 1000ML IV soln IVB ONE (04:25)
[2022-05-19] MEDS ORDERED: ketorolac trometh. 30mg/ml inj. IV ONE (05:05)
[2022-05-19] MEDS ORDERED: acetaminophen 325mg tablet PO ONE (05:05)
[2022-05-19 05:45] VITALS: BP 122/74
== END 2022-05-19 06:12 | disposition home or self-care (01) ==
LOC: ER 01:40
DX: R07.89 Other chest pain (principal); I25.10 Atherosclerotic heart disease of native coronary artery without angina pectoris; I10 Essential (primary) hypertension; J45.909 Unspecified asthma, uncomplicated; F41.9 Anxiety disorder, unspecified; Z85.9 Personal history of malignant neoplasm, unspecified; Z90.49 Acquired absence of other specified parts of digestive tract; Z98.890 Other specified postprocedural states; Z88.5 Allergy status to narcotic agent; Z79.82 Long term (current) use of aspirin; Z79.899 Other long term (current) drug therapy
CPT/HCPCS: 36415; 71045; 80053; 83880; 84484; 85025; 93005; 96374; 96375; 99285; J1885; J3010; J7030

== ENCOUNTER 2022-05-30 23:44 | Emergency (ER) | payer MEDICARE, BC ==
[~2022-05-30] VITALS: Ht 167.6 cm; Wt 83.6 kg
[~2022-05-30 23:44] MED LIST changes: +ALBU6.7H14 INH; -ALBU6.7H9 INH
[2022-05-31 00:30] LABS: BASOPHILS # (AUTO) 0.1 X10'3 (0-0.2); BASOPHILS % (AUTO) 1.2 % (0-1); EOSINOPHILS # (AUTO) 0.2 X10'3 (0-0.9); EOSINOPHILS % (AUTO) 3.9 % (0-6); HEMATOCRIT 39.8 % (35.0-45.0); HEMOGLOBIN 13.3 g/dl (12.0-16.0); LYMPHOCYTES # (AUTO) 0.8 X10'3 (1.1-4.8); LYMPHOCYTES % (AUTO) 14.3 % (21-51); MEAN CORPUSCULAR HGB CONC 33.3 g/dL (33.0-36.5); MEAN CORPUSCULAR VOLUME 90.3 FL (78-98); MEAN PLATELET VOLUME 9.1 FL (7.4-10.4); MONOCYTES # (AUTO) 0.6 X10'3 (0-0.9); MONOCYTES % (AUTO) 10.7 % (2-12); NEUTROPHILS # (AUTO) 3.8 X10'3 (1.8-7.7); NEUTROPHILS % (AUTO) 69.9 % (42-75); PLATELET COUNT 222 X10'3 (140-440); RED BLOOD COUNT 4.41 X10'6 (4.20-5.60); RED CELL DISTRIBUTION WIDTH 16.7 % (11.5-14.5); WHITE BLOOD COUNT 5.4 X10'3 (4.5-11.0)
[2022-05-31 00:46] LABS: ALANINE AMINOTRANSFERASE 15 U/L (12-78); ALBUMIN 3.5 G/DL (3.4-5.0); ALBUMIN/GLOBULIN RATIO 0.9 (1.1-1.5); ALKALINE PHOSPHATASE 82 IU/L (46-116); ANION GAP 8 (8-16); ASPARTATE AMINO TRANSFERASE 13 U/L (10-37); BILIRUBIN,TOTAL 0.5 MG/DL (0.1-1.0); BLOOD UREA NITROGEN 16 MG/DL (7-18); BUN/CREATININE RATIO 21.9 (6.6-38.0); CHLORIDE 103 MMOL/L (99-107); CREATININE 0.73 MG/DL (0.40-0.90); GLUCOSE 122 MG/DL (70-104); LIPASE 92 U/L (73-393); POTASSIUM 3.7 MMOL/L (3.5-5.1); SODIUM 139 MMOL/L (135-145); TOTAL CARBON DIOXIDE 28.2 MMOL/L (24-32); TOTAL PROTEIN 7.4 G/DL (6.4-8.2); eGFR 77 ML/MIN
[2022-05-31 00:54] LABS: CALCIUM 8.8 MG/DL (8.5-10.1)
--- NOTE | 2022-05-31 01:29 | NUR ---
at bedside assessing patient
[2022-05-31] MEDS ORDERED: normal saline 1000ml 1,000 ML IV ONE (01:55)
[2022-05-31] MEDS ORDERED: morphine 2 MG/ML inj. syringe IV ONE (02:00)
[2022-05-31] MEDS ORDERED: ondansetron/PF 4mg/2ml inj IV ONE (02:00)
--- NOTE | 2022-05-31 02:25 | NUR ---
patient refused all medications that ED ordered, Patient verbalized having a large BM with relief of pain. Pain is now tolerable w/o medications verbalized by the patient
--- NOTE | 2022-05-31 03:45 | NUR ---
dR. De Oliveira IN ROOM AT PATIENTS BEDSIDE ASSESSING PATIWENT WAITING FOR CT RESULTS
--- NOTE | 2022-05-31 04:00 | NUR ---
PATIENT SUPINE IN BED EYES CLOSED COVERS RR EVEN UN LABORED NO OBSERVABLE S/S OF ACUTE STRESS/PAIN AT THIS TIME WILL CONTINUE TO MONITOR, WAITING FOR CT RESULTS
--- NOTE | 2022-05-31 04:38 | NUR ---
PATIENT STILL EYES CLOSED RR EVEN UN LABORED WAITING FOR CT RESULTS
[2022-05-31] MEDS ORDERED: pantoprazole 40MG/NS 100ML BAG 100 ML IV ONE (04:43)
[2022-05-31] MEDS ORDERED: PANT20TA18 PO (05:36)
[2022-05-31 06:12] VITALS: BP 179/94
== END 2022-05-31 07:05 | disposition home or self-care (01) ==
LOC: ER 23:44
DX: K44.9 Diaphragmatic hernia without obstruction or gangrene (principal); R10.32 Left lower quadrant pain; K59.00 Constipation, unspecified; I25.10 Atherosclerotic heart disease of native coronary artery without angina pectoris; I10 Essential (primary) hypertension; J45.909 Unspecified asthma, uncomplicated; F41.9 Anxiety disorder, unspecified; Z90.49 Acquired absence of other specified parts of digestive tract; Z85.41 Personal history of malignant neoplasm of cervix uteri; Z98.890 Other specified postprocedural states; Z88.5 Allergy status to narcotic agent; Z88.1 Allergy status to other antibiotic agents; Z79.82 Long term (current) use of aspirin; Z79.899 Other long term (current) drug therapy
CPT/HCPCS: 36415; 71250; 74176; 80053; 83690; 85025; 96365; 99285; C9113; J7030

== ENCOUNTER 2024-07-28 14:57 | Inpatient (IN) | payer MEDICARE, BC ==
[2024-07-28] VITALS (8 sets, daily range): PULSE 44–51; RESP 20–25; O2SAT 96–99
[~2024-07-28] VITALS: Ht 162.6 cm; Wt 90.0 kg
[~2024-07-28 14:57] MED LIST changes: -AMLO5TAB16 PO; -APIX2.5T PO; -ATOR-2 PO; -FERR325T28 PO; -FLUT16SP2 BOTHNARES; +IPRA3AMP9 NEB; +LABE100T8 PO; +LISI10TA27 PO; -LORA10TA7 PO; -LOSA25TA41 PO; -METO-395 PO; +NYST100069 PO; -OMEP20CA15 PO; -TICA90TA2 PO
[2024-07-28] MEDS: ipratropium/albuterol 3ml nebule NEB ONE (15:12)
[2024-07-28 15:54] LABS: BASOPHILS # (AUTO) 0.1 X10'3 (0-0.2); EOSINOPHILS # (AUTO) 0.1 X10'3 (0-0.9); EOSINOPHILS % (AUTO) 1.1 % (0-6); HEMATOCRIT 29.8 % (35.0-45.0); HEMOGLOBIN 9.3 g/dl (12.0-16.0); LYMPHOCYTES # (AUTO) 0.7 X10'3 (1.1-4.8); LYMPHOCYTES % (AUTO) 10.5 % (21-51); MEAN CORPUSCULAR HEMOGLOBIN 25.8 PG (27.0-31.0); MEAN CORPUSCULAR HGB CONC 31.3 g/dL (33.0-36.5); MEAN CORPUSCULAR VOLUME 82.4 FL (78-98); MONOCYTES # (AUTO) 0.5 X10'3 (0-0.9); MONOCYTES % (AUTO) 7.5 % (2-12); NEUTROPHILS # (AUTO) 4.9 X10'3 (1.8-7.7); NEUTROPHILS % (AUTO) 79.9 % (42-75); PLATELET COUNT 275 X10'3 (140-440); RED BLOOD COUNT 3.62 X10'6 (4.20-5.60); RED CELL DISTRIBUTION WIDTH 17.7 % (11.5-14.5); WHITE BLOOD COUNT 6.2 X10'3 (4.5-11.0)
[2024-07-28 16:13] LABS: ALANINE AMINOTRANSFERASE 20 U/L (12-78); ALBUMIN 3.2 G/DL (3.4-5.0); ALKALINE PHOSPHATASE 65 IU/L (46-116); ANION GAP 10 (8-16); ASPARTATE AMINO TRANSFERASE 12 U/L (10-37); BILIRUBIN,TOTAL 0.7 MG/DL (0.1-1.0); BLOOD UREA NITROGEN 21 MG/DL (7-18); BUN/CREATININE RATIO 26.6 (10.0-20.0); CALCIUM 8.5 MG/DL (8.5-10.1); CHLORIDE 111 MMOL/L (99-107); CREATININE 0.79 MG/DL (0.40-0.90); GLUCOSE 112 MG/DL (70-104); POTASSIUM 4.1 MMOL/L (3.5-5.1); SODIUM 147 MMOL/L (135-145); TOTAL CARBON DIOXIDE 25.9 MMOL/L (24-32); TOTAL PROTEIN 6.5 G/DL (6.4-8.2); eCRCL 49 ML/MIN; eGFR 70 ML/MIN
[2024-07-28] MEDS: albuterol 2.5 MG/3 ML nebule NEB ONE ×2 (16:18→17:38)
[2024-07-28 16:21] LABS: PRO BRAIN NATRIURETIC PEPTIDE 1850 PG/ML (0-450)
[2024-07-28] MEDS ORDERED: doxycycline inj 100 MG in normal saline 100ml IV soln 100 ML IV SCH (16:40)
[2024-07-28] MEDS ORDERED: magnesium sulf-water 4G/100mL 100 ML IV PRN (17:05)
[2024-07-28] MEDS ORDERED: potassium Cl 40MEQ/1/2NS 520ml 520 ML IV PRN (17:05)
[2024-07-28] MEDS ORDERED: morphine 2 MG/ML inj. syringe IV PRN ×2 (17:05)
[2024-07-28] MEDS ORDERED: magnesium sulf-water 2g/50mL 50 ML IV PRN (17:05)
[2024-07-28] MEDS ORDERED: magnesium hydroxide 30ml (MOM) UD suspension PO PRN (17:05)
[2024-07-28] MEDS ORDERED: ondansetron/PF 4mg/2ml inj IV PRN (17:05)
[2024-07-28] MEDS ORDERED: acetaminophen 325mg tablet PO PRN (17:05)
[2024-07-28] MEDS ORDERED: mag hydrox/Alum hydrox/simeth 30ml oral suspension PO PRN (17:05)
[2024-07-28] MEDS ORDERED: potassium Cl 20 mEq SR tablet PO PRN ×2 (17:05)
[2024-07-28] MEDS ORDERED: doxycycline inj 100 MG in normal saline 100ml IV soln 100 ML IV ONE (17:21)
[2024-07-28] MEDS: CefTRIAXone/D5W-Rocephin 1gm 50 ML IV ONE (17:41)
[2024-07-28] MEDS: methylPREDNISolone sod succ 125mg/2ml vial IV STA (17:42)
[2024-07-28 17:54] LABS: ABG BASE EXCESS -2.8 mmol/L (-2.0-3.0); ABG HCO3 20.6 mmol/L (21.0-28.0); ABG PCO2 (T) 31.2 mmHg (32.0-45.0); ABG PH (T) 7.438 (7.350-7.450); ABG PO2 (T) 92.1 mmHg (83.0-108.0); ALLEN'S TEST POSITIVE; FCOHb 0.3 % (0.5-1.5); FLOW 2 L/min; FMetHb 0.3 % (0.0-1.5); FO2Hb 96.4 % (94.0-98.0); MODE OXYGENATOR; PATIENT TEMPERATURE 37.1; TOTAL HEMOGLOBIN 10.3 G/dl (12.0-16.0)
[2024-07-28] MEDS ORDERED: albuterol 2.5 MG/3 ML nebule NEB PRN (19:00)
[2024-07-28] MEDS: doxycycline inj 100 MG in normal saline 100ml IV soln 100 ML IV STA (19:12)
[2024-07-28] MEDS: docusate sod 100mg capsule PO SCH (20:00)
[2024-07-28] MEDS ORDERED: methylPREDNISolone sod succ 125mg/2ml vial IV SCH (20:00)
[2024-07-28] MEDS: K and/or MAG REPLACEMENT MC SCH (20:00)
[2024-07-28] MEDS: apixaban 5mg tablet PO SCH (20:35)
[2024-07-28] MEDS: methylPREDNISolone sod succ 125mg/2ml vial IV SCH (20:36)
[2024-07-28] MEDS: ipratropium/albuterol 3ml nebule NEB SCH (20:39)
[2024-07-28 20:58] LABS: D-DIMER 2.37 MG/L FEU (0-0.50)
[2024-07-28 21:13] LABS: PRO BRAIN NATRIURETIC PEPTIDE 2336 PG/ML (0-450)
[2024-07-29] VITALS (16 sets, daily range): BP systolic 108–169; BP diastolic 43–83; PULSE 38–67; RESP 13–26; TEMP 97.1–98.5; O2SAT 92–99
[2024-07-29 07:02] LABS: BASOPHILS % (AUTO) 0 % (0-1); EOSINOPHILS % (AUTO) 0 % (0-6); HEMOGLOBIN 9.3 g/dl (12.0-16.0); LYMPHOCYTES # (AUTO) 0.2 X10'3 (1.1-4.8); LYMPHOCYTES % (AUTO) 5.7 % (21-51); MONOCYTES # (AUTO) 0.1 X10'3 (0-0.9); NEUTROPHILS # (AUTO) 3.8 X10'3 (1.8-7.7); WHITE BLOOD COUNT 4.1 X10'3 (4.5-11.0)
[2024-07-29 07:06] LABS: HEMATOCRIT 28.8 % (35.0-45.0); MEAN CORPUSCULAR HEMOGLOBIN 26.5 PG (27.0-31.0); MEAN CORPUSCULAR HGB CONC 32.4 g/dL (33.0-36.5); MEAN PLATELET VOLUME 9.2 FL (7.4-10.4); MONOCYTES % (AUTO) 1.4 % (2-12); NEUTROPHILS % (AUTO) 92.9 % (42-75); PLATELET COUNT 245 X10'3 (140-440); RED BLOOD COUNT 3.51 X10'6 (4.20-5.60); RED CELL DISTRIBUTION WIDTH 17.3 % (11.5-14.5)
[2024-07-29] MEDS ORDERED: iohexol 350MG/ML 100ml bottle IV ONE (07:34)
[2024-07-29 07:48] LABS: ALANINE AMINOTRANSFERASE 18 U/L (12-78); ALBUMIN 3.1 G/DL (3.4-5.0); ALBUMIN/GLOBULIN RATIO 0.9 (1.1-1.5); ALKALINE PHOSPHATASE 60 IU/L (46-116); ANION GAP 11 (8-16); ASPARTATE AMINO TRANSFERASE 15 U/L (10-37); BILIRUBIN,TOTAL 0.5 MG/DL (0.1-1.0); BLOOD UREA NITROGEN 17 MG/DL (7-18); BUN/CREATININE RATIO 21.8 (10.0-20.0); CALCIUM 8.2 MG/DL (8.5-10.1); CHLORIDE 107 MMOL/L (99-107); CREATININE 0.78 MG/DL (0.40-0.90); GLUCOSE 197 MG/DL (70-104); MAGNESIUM 1.9 MG/DL (1.5-2.4); POTASSIUM 4.1 MMOL/L (3.5-5.1); SODIUM 141 MMOL/L (135-145); TOTAL CARBON DIOXIDE 23.5 MMOL/L (24-32); TOTAL PROTEIN 6.6 G/DL (6.4-8.2); eCRCL 50 ML/MIN; eGFR 71 ML/MIN
[2024-07-29] MEDS: CefTRIAXone 2gm/D5W 50ml BAG 50 ML IV SCH (08:00)
[2024-07-29] MEDS: doxycycline inj 100 MG in normal saline 100ml IV soln 100 ML IV SCH (09:24)
[2024-07-29] MEDS: furosemide 40mg/4ml inj IV SCH (19:55)
[2024-07-29] MEDS: sacubitril/valsartan 24mg-26mg tablet PO SCH (20:00)
[2024-07-29] MEDS: spironolactone 25 MG tablet PO SCH (20:12)
[2024-07-30] VITALS (12 sets, daily range): BP systolic 134–171; BP diastolic 69–93; PULSE 58–85; RESP 15–22; TEMP 96.9–98; O2SAT 94–98
[2024-07-30 06:19] LABS: BASOPHILS % (AUTO) 0.2 % (0-1); EOSINOPHILS % (AUTO) 0 % (0-6); HEMOGLOBIN 9.6 g/dl (12.0-16.0); LYMPHOCYTES # (AUTO) 0.3 X10'3 (1.1-4.8); LYMPHOCYTES % (AUTO) 3.2 % (21-51); MEAN CORPUSCULAR HEMOGLOBIN 25.6 PG (27.0-31.0); MEAN CORPUSCULAR VOLUME 82.3 FL (78-98); MEAN PLATELET VOLUME 9.3 FL (7.4-10.4); MONOCYTES # (AUTO) 0.4 X10'3 (0-0.9); NEUTROPHILS # (AUTO) 8.5 X10'3 (1.8-7.7); NEUTROPHILS % (AUTO) 92.6 % (42-75); PLATELET COUNT 306 X10'3 (140-440); RED BLOOD COUNT 3.76 X10'6 (4.20-5.60); RED CELL DISTRIBUTION WIDTH 17.9 % (11.5-14.5); WHITE BLOOD COUNT 9.2 X10'3 (4.5-11.0)
[2024-07-30 06:36] LABS: ALANINE AMINOTRANSFERASE 22 U/L (12-78); ALBUMIN 3.2 G/DL (3.4-5.0); ALBUMIN/GLOBULIN RATIO 0.8 (1.1-1.5); ALKALINE PHOSPHATASE 62 IU/L (46-116); ANION GAP 11 (8-16); ASPARTATE AMINO TRANSFERASE 7 U/L (10-37); BILIRUBIN,TOTAL 0.5 MG/DL (0.1-1.0); BLOOD UREA NITROGEN 27 MG/DL (7-18); BUN/CREATININE RATIO 32.5 (10.0-20.0); CALCIUM 8.7 MG/DL (8.5-10.1); CHLORIDE 106 MMOL/L (99-107); CREATININE 0.83 MG/DL (0.40-0.90); GLUCOSE 162 MG/DL (70-104); POTASSIUM 3.8 MMOL/L (3.5-5.1); SODIUM 142 MMOL/L (135-145); TOTAL PROTEIN 7.4 G/DL (6.4-8.2); eCRCL 47 ML/MIN; eGFR 66 ML/MIN
[2024-07-30] MEDS: aspirin 81mg, enteric-coated 1 TAB TABLET.DR PO SCH (09:48)
[2024-07-30] MEDS: hydrALAZINE 20mg/ml inj. IV PRN (11:38)
[2024-07-30] MEDS ORDERED: SPIR25TA5 PO (14:42)
[2024-07-30] MEDS ORDERED: SACU1TAB PO (14:42)
[2024-07-30] MEDS ORDERED: APIX5TAB3 PO (14:42)
[2024-07-30] MEDS ORDERED: PRED10TA23 PO (14:42)
[2024-07-30] MEDS ORDERED: FURO-150 PO (14:42)
[2024-07-30] MEDS ORDERED: CEFD300C3 PO (14:42)
[2024-07-30] MEDS ORDERED: FLUT1DIS4 INH (14:42)
[2024-07-30] MEDS ORDERED: HYDR50TA46 PO (14:56)
== END 2024-07-30 17:15 | disposition home or self-care (01) | DRG 177 ==
LOC: ER 14:58 → ED HOLD 17:18 → UNDOADMIN 17:18 → ED HOLD 21:35 → PCU 3S 07-29 00:44
PROVIDERS: ADMIT Nurse Practitioner Family; ATTEND Nurse Practitioner Family
DX: J15.69 Pneumonia due to other Gram-negative bacteria (principal); I50.31 Acute diastolic (congestive) heart failure; J96.01 Acute respiratory failure with hypoxia; J45.901 Unspecified asthma with (acute) exacerbation; E87.3 Alkalosis; E87.0 Hyperosmolality and hypernatremia; I11.0 Hypertensive heart disease with heart failure; J15.9 Unspecified bacterial pneumonia; Z20.822 Contact with and (suspected) exposure to COVID-19; I16.0 Hypertensive urgency; I27.20 Pulmonary hypertension, unspecified; D64.9 Anemia, unspecified; I48.0 Paroxysmal atrial fibrillation; F41.9 Anxiety disorder, unspecified; I25.10 Atherosclerotic heart disease of native coronary artery without angina pectoris; Z88.1 Allergy status to other antibiotic agents; Z88.5 Allergy status to narcotic agent; Z85.41 Personal history of malignant neoplasm of cervix uteri; Z79.899 Other long term (current) drug therapy
CPT/HCPCS: 36415; 36600; 71045; 71275; 80053; 82803; 83605; 83735; 83880; 84145; 84484; 85018; 85025; 85379; 87081; 87502; 87503; 87811; 93005; 93306; 94640; 94664; 94668; 94760; 96365; 96367; 97116; 97161; 97530; 99285; G0378; J0360; J0696; J1940; J2919; J3490; J7040; Q9967

== ENCOUNTER 2024-09-22 13:02 | Inpatient (IN) | payer MEDICARE, BC ==
[~2024-09-22] VITALS: Ht 165.1 cm; Wt 85.8 kg
[~2024-09-22 13:02] MED LIST changes: +APIX5TAB3 PO; +CEFD300C3 PO; +FLUT1DIS4 INH; +HYDR50TA46 PO; -IPRA3AMP9 NEB; -LABE100T8 PO; -LISI10TA27 PO; +SACU1TAB PO; +SPIR25TA5 PO
[2024-09-22 13:30] LABS: WHITE BLOOD COUNT 4.3 X10'3 (4.5-11.0)
[2024-09-22 13:32] LABS: HEMATOCRIT 25.3 % (35.0-45.0); HEMOGLOBIN 7.8 g/dl (12.0-16.0); MEAN CORPUSCULAR HEMOGLOBIN 22.5 PG (27.0-31.0); MEAN CORPUSCULAR VOLUME 72.6 FL (78-98); MEAN PLATELET VOLUME 8.2 FL (7.4-10.4); PLATELET COUNT 294 X10'3 (140-440); RED BLOOD COUNT 3.48 X10'6 (4.20-5.60); RED CELL DISTRIBUTION WIDTH 21.1 % (11.5-14.5)
[2024-09-22 13:39] LABS: ALANINE AMINOTRANSFERASE 12 U/L (12-78); ALBUMIN 3.7 G/DL (3.4-5.0); ALBUMIN/GLOBULIN RATIO 1.1 (1.1-1.5); ALKALINE PHOSPHATASE 65 IU/L (46-116); ANION GAP 10 (8-16); ASPARTATE AMINO TRANSFERASE 10 U/L (10-37); BILIRUBIN,TOTAL 0.4 MG/DL (0.1-1.0); BLOOD UREA NITROGEN 15 MG/DL (7-18); BUN/CREATININE RATIO 25.4 (10.0-20.0); CALCIUM 8.8 MG/DL (8.5-10.1); CHLORIDE 106 MMOL/L (99-107); CREATININE 0.59 MG/DL (0.40-0.90); GLUCOSE 107 MG/DL (70-104); POTASSIUM 3.9 MMOL/L (3.5-5.1); SODIUM 140 MMOL/L (135-145); TOTAL CARBON DIOXIDE 24.2 MMOL/L (24-32); eCRCL 68 ML/MIN; eGFR > 90 ML/MIN
[2024-09-22 13:48] LABS: PRO BRAIN NATRIURETIC PEPTIDE 292 PG/ML (0-450)
[2024-09-22 14:23] LABS: TOTAL CELLS COUNTED 100
[2024-09-22 14:24] LABS: ANISOCYTOSIS 3+; HYPOCHROMASIA 1+; MICROCYTOSIS 1+; PLATELET ESTIMATE NORMAL
[2024-09-22 17:24] LABS: BILIRUBIN,URINE NEGATIVE (Neg); CLARITY,URINE CLEAR (Clear); COLOR,URINE YELLOW (Yellow); GLUCOSE, URINE NEGATIVE (Neg); KETONES,URINE NEGATIVE (Neg); LEUKOCYTE ESTERASE ,URINE TRACE (Neg); NITRITES, URINE NEGATIVE (Neg); OCCULT BLOOD,URINE NEGATIVE (Neg); PROTEIN,URINE NEGATIVE (Neg); UROBILINOGEN,URINE 0.2 E.U/dL (0.2-1.0)
[2024-09-22] MEDS ORDERED: SACU1TAB7 PO (17:30)
[2024-09-22] MEDS ORDERED: NITR0.3T SL (17:31)
[2024-09-22] MEDS ORDERED: NITR0.4T51 SL (17:31)
[2024-09-22 17:34] LABS: UA COLLECTION TYPE CLN CATCH MIDSTREAM
[2024-09-22] MEDS ORDERED: HYDR50TA46 PO (17:34)
[2024-09-22] MEDS ORDERED: APIX5TAB3 PO (17:34)
[2024-09-22 17:36] LABS: BACTERIA,URINE FEW /HPF (Neg); RBC,URINE 0-2 /HPF (0-2); SQUAMOUS EPITHELIAL CELL,UR FEW /LPF (FEW)
[2024-09-22] MEDS: metoprolol tartrate 50mg tablet PO ONE (18:04)
[2024-09-22] MEDS: sacubitril/valsartan 49mg-51mg tablet PO SCH (21:01)
[2024-09-22 21:26] LABS: BASOPHILS # (AUTO) 0.1 X10'3 (0-0.2); BASOPHILS % (AUTO) 1.7 % (0-1); EOSINOPHILS # (AUTO) 0.1 X10'3 (0-0.9); EOSINOPHILS % (AUTO) 2.5 % (0-6); HEMATOCRIT 24.5 % (35.0-45.0); HEMOGLOBIN 7.4 g/dl (12.0-16.0); LYMPHOCYTES # (AUTO) 0.9 X10'3 (1.1-4.8); LYMPHOCYTES % (AUTO) 21.3 % (21-51); MEAN CORPUSCULAR HGB CONC 30.4 g/dL (33.0-36.5); MEAN CORPUSCULAR VOLUME 72.5 FL (78-98); MEAN PLATELET VOLUME 8.2 FL (7.4-10.4); MONOCYTES # (AUTO) 0.4 X10'3 (0-0.9); NEUTROPHILS # (AUTO) 2.8 X10'3 (1.8-7.7); NEUTROPHILS % (AUTO) 65.5 % (42-75); PLATELET COUNT 255 X10'3 (140-440); RED BLOOD COUNT 3.38 X10'6 (4.20-5.60); RED CELL DISTRIBUTION WIDTH 20.7 % (11.5-14.5); WHITE BLOOD COUNT 4.2 X10'3 (4.5-11.0)
[2024-09-22 21:49] LABS: THYROID STIMULATING HORMONE 3.25 ulU/ml (0.34-4.50)
[2024-09-22] MEDS ORDERED: ondansetron/PF 4mg/2ml inj IV PRN (21:50)
[2024-09-22] MEDS ORDERED: mag hydrox/Alum hydrox/simeth 30ml oral suspension PO PRN (21:50)
[2024-09-22] MEDS ORDERED: morphine 2 MG/ML inj. syringe IV PRN ×2 (21:50)
[2024-09-22] MEDS ORDERED: magnesium Cl slow-release 64mg tablet PO PRN (21:50)
[2024-09-22] MEDS ORDERED: potassium Cl 40MEQ/1/2NS 520ml 520 ML IV PRN (21:50)
[2024-09-22] MEDS ORDERED: magnesium hydroxide 30ml (MOM) UD suspension PO PRN (21:50)
[2024-09-22] MEDS ORDERED: potassium Cl 20 mEq SR tablet PO PRN ×2 (21:50)
[2024-09-22] MEDS ORDERED: magnesium sulf-water 2g/50mL 50 ML IV PRN (21:50)
[2024-09-22] MEDS ORDERED: magnesium sulf-water 4G/100mL 100 ML IV PRN (21:50)
[2024-09-22] MEDS ORDERED: albuterol 2.5 MG/3 ML nebule NEB PRN (21:50)
[2024-09-22] MEDS ORDERED: acetaminophen 325mg tablet PO PRN (21:50)
[2024-09-22] MEDS: pantoprazole 40 MG vial IV ONE (22:13)
[2024-09-22] MEDS: normal saline 1000ml 1,000 ML IV SCH (22:13)
[2024-09-22] MEDS: nitroGLYCERIN 0.4mg SUBLingual tab SL SCH (22:14)
[2024-09-22 22:31] LABS: HEMOGLOBIN A1C 5.5 % (4.5-6.2)
[2024-09-22 22:40] LABS: APTT 24 SECONDS (22-32); INR 1.1 INR; PROTHROMBIN TIME 11.1 SECONDS (9.0-12.0)
[2024-09-22] MEDS: furosemide 10 MG/1 ML 10ml inj IV ONE (23:43)
[2024-09-22 23:54] LABS: BILIRUBIN,URINE NEGATIVE (Neg); CLARITY,URINE CLEAR (Clear); COLOR,URINE YELLOW (Yellow); GLUCOSE, URINE NEGATIVE (Neg); KETONES,URINE NEGATIVE (Neg); LEUKOCYTE ESTERASE ,URINE NEGATIVE (Neg); NITRITES, URINE NEGATIVE (Neg); OCCULT BLOOD,URINE NEGATIVE (Neg); PROTEIN,URINE NEGATIVE (Neg); UROBILINOGEN,URINE 0.2 E.U/dL (0.2-1.0)
[2024-09-23] VITALS (24 sets, daily range): BP systolic 106–175; BP diastolic 50–128; PULSE 54–72; RESP 10–24; TEMP 97.5–98.4; O2SAT 83–100
[2024-09-23] MEDS: albuterol 2.5 MG/3 ML nebule NEB ONE (00:02)
[2024-09-23 00:06] LABS: UA COLLECTION TYPE CLN CATCH MIDSTREAM
[2024-09-23 06:16] LABS: WHITE BLOOD COUNT 3.8 X10'3 (4.5-11.0)
[2024-09-23 06:18] LABS: HEMATOCRIT 23.6 % (35.0-45.0); HEMOGLOBIN 7.2 g/dl (12.0-16.0); MEAN CORPUSCULAR HEMOGLOBIN 22.1 PG (27.0-31.0); MEAN CORPUSCULAR HGB CONC 30.7 g/dL (33.0-36.5); MEAN CORPUSCULAR VOLUME 71.9 FL (78-98); MEAN PLATELET VOLUME 8.4 FL (7.4-10.4); PLATELET COUNT 271 X10'3 (140-440); RED BLOOD COUNT 3.28 X10'6 (4.20-5.60)
[2024-09-23 06:33] LABS: ALANINE AMINOTRANSFERASE 12 U/L (12-78); ALBUMIN 3.2 G/DL (3.4-5.0); ALBUMIN/GLOBULIN RATIO 1.1 (1.1-1.5); ALKALINE PHOSPHATASE 56 IU/L (46-116); ANION GAP 9 (8-16); ASPARTATE AMINO TRANSFERASE 7 U/L (10-37); BILIRUBIN,TOTAL 0.5 MG/DL (0.1-1.0); BLOOD UREA NITROGEN 15 MG/DL (7-18); BUN/CREATININE RATIO 20.8 (10.0-20.0); CALCIUM 8.6 MG/DL (8.5-10.1); CHLORIDE 108 MMOL/L (99-107); CHOL/HDL RATIO 3.2 (0.00-4.99); CHOLESTEROL 196 MG/DL (0-200); CREATININE 0.72 MG/DL (0.40-0.90); GLUCOSE 95 MG/DL (70-104); HDL CHOLESTEROL 62 MG/DL (35-60); LDL CHOLESTEROL 111 MG/DL (50-100); POTASSIUM 3.6 MMOL/L (3.5-5.1); SODIUM 145 MMOL/L (135-145); TOTAL CARBON DIOXIDE 27.9 MMOL/L (24-32); TOTAL PROTEIN 6.2 G/DL (6.4-8.2); TRIGLYCERIDES 90 MG/DL (20-135); eCRCL 56 ML/MIN; eGFR 78 ML/MIN
[2024-09-23 07:42] LABS: TOTAL CELLS COUNTED 100
[2024-09-23 07:43] LABS: ANISOCYTOSIS 3+; ELLIPTOCYTES FEW; HYPOCHROMASIA 1+; MICROCYTOSIS 1+; PLATELET ESTIMATE NORMAL; POLYCHROMASIA 1+; TEAR DROP CELLS FEW
[2024-09-23] MEDS: K and/or MAG REPLACEMENT MC SCH (08:00)
[2024-09-23] MEDS: pantoprazole 40 MG vial IV SCH (08:42)
[2024-09-23] MEDS: CefTRIAXone/D5W-Rocephin 1gm 50 ML IV SCH (08:43)
[2024-09-23] MEDS: hydrALAZINE 25 MG tablet PO SCH (08:44)
[2024-09-23] MEDS: sacubitril/valsartan 49mg-51mg tablet PO SCH (08:45)
[2024-09-23] MEDS: metoprolol tartrate 50mg tablet PO SCH (08:46)
[2024-09-23 10:06] LABS: HEMATOCRIT 24.4 % (35.0-45.0); HEMOGLOBIN 7.4 g/dl (12.0-16.0); MEAN CORPUSCULAR HGB CONC 30.3 g/dL (33.0-36.5); MEAN CORPUSCULAR VOLUME 72.5 FL (78-98); MEAN PLATELET VOLUME 8.5 FL (7.4-10.4); PLATELET COUNT 260 X10'3 (140-440); RED BLOOD COUNT 3.37 X10'6 (4.20-5.60); RED CELL DISTRIBUTION WIDTH 21.2 % (11.5-14.5); WHITE BLOOD COUNT 4.4 X10'3 (4.5-11.0)
[2024-09-23] MEDS ORDERED: simethicone 40mg/0.6ml oral drops 30ml ONE (13:45)
[2024-09-23] MEDS ORDERED: fentaNYL/PF 50MCG/1 ML 2ML syringe ONE (15:12)
[2024-09-23] MEDS ORDERED: MIDAZolam 1 MG/ML 5ML VIAL ONE (15:13)
[2024-09-23 18:47] LABS: HEMATOCRIT 25.4 % (35.0-45.0); HEMOGLOBIN 7.8 g/dl (12.0-16.0); MEAN CORPUSCULAR HGB CONC 30.6 g/dL (33.0-36.5); MEAN CORPUSCULAR VOLUME 71.8 FL (78-98); MEAN PLATELET VOLUME 8.3 FL (7.4-10.4); PLATELET COUNT 279 X10'3 (140-440); RED BLOOD COUNT 3.54 X10'6 (4.20-5.60); RED CELL DISTRIBUTION WIDTH 20.9 % (11.5-14.5); WHITE BLOOD COUNT 3.3 X10'3 (4.5-11.0)
[2024-09-24 00:06] VITALS: PULSE 66; RESP 16; O2SAT 96
[2024-09-24 02:00] VITALS: BP 175/83; PULSE 68; RESP 15; TEMP 97; O2SAT 98
[2024-09-24 08:00] VITALS: RESP 19; O2SAT 95
[2024-09-24 08:03] LABS: BASOPHILS # (AUTO) 0.1 X10'3 (0-0.2); BASOPHILS % (AUTO) 2.1 % (0-1); EOSINOPHILS # (AUTO) 0.1 X10'3 (0-0.9); EOSINOPHILS % (AUTO) 3.7 % (0-6); HEMATOCRIT 24.8 % (35.0-45.0); HEMOGLOBIN 7.6 g/dl (12.0-16.0); LYMPHOCYTES # (AUTO) 0.5 X10'3 (1.1-4.8); LYMPHOCYTES % (AUTO) 14.4 % (21-51); MEAN CORPUSCULAR HEMOGLOBIN 21.8 PG (27.0-31.0); MEAN CORPUSCULAR HGB CONC 30.5 g/dL (33.0-36.5); MEAN CORPUSCULAR VOLUME 71.7 FL (78-98); MEAN PLATELET VOLUME 8.5 FL (7.4-10.4); MONOCYTES # (AUTO) 0.4 X10'3 (0-0.9); MONOCYTES % (AUTO) 12.2 % (2-12); NEUTROPHILS # (AUTO) 2.1 X10'3 (1.8-7.7); NEUTROPHILS % (AUTO) 67.6 % (42-75); PLATELET COUNT 276 X10'3 (140-440); RED BLOOD COUNT 3.46 X10'6 (4.20-5.60); WHITE BLOOD COUNT 3.1 X10'3 (4.5-11.0)
[2024-09-24 08:30] LABS: ALANINE AMINOTRANSFERASE 11 U/L (12-78); ALBUMIN 3.2 G/DL (3.4-5.0); ALKALINE PHOSPHATASE 59 IU/L (46-116); ANION GAP 10 (8-16); ASPARTATE AMINO TRANSFERASE 15 U/L (10-37); BILIRUBIN,TOTAL 0.5 MG/DL (0.1-1.0); BLOOD UREA NITROGEN 12 MG/DL (7-18); BUN/CREATININE RATIO 21.4 (10.0-20.0); CALCIUM 8.4 MG/DL (8.5-10.1); CHLORIDE 108 MMOL/L (99-107); CREATININE 0.56 MG/DL (0.40-0.90); GLUCOSE 91 MG/DL (70-104); MAGNESIUM 2.2 MG/DL (1.5-2.4); POTASSIUM 3.5 MMOL/L (3.5-5.1); SODIUM 143 MMOL/L (135-145); TOTAL CARBON DIOXIDE 24.8 MMOL/L (24-32); TOTAL PROTEIN 6.3 G/DL (6.4-8.2); eCRCL 72 ML/MIN; eGFR > 90 ML/MIN
[2024-09-24] MEDS ORDERED: APIX5TAB3 PO (09:25)
[2024-09-24] MEDS ORDERED: PANT40TA54 PO (09:25)
[2024-09-24 10:13] LABS: % IRON SATURATION 3 % (11-46); IRON 11 UG/DL (49-151); TOTAL IRON BINDING CAPACITY 393 UG/DL (259-388)
[2024-09-24 10:28] VITALS: BP_SYST 157; PULSE 70
[2024-09-24] MEDS: metoprolol tartrate 25mg tablet PO SCH (10:28)
[2024-09-24] MEDS ORDERED: FERR324T4 PO (19:56)
[2024-09-28 15:59] LABS: OCCULT BLOOD STOOL POSITIVE (Neg)
== END 2024-09-24 16:25 | disposition home or self-care (01) | DRG 368 ==
LOC: ER 13:03 → UNDOADMIN 20:52 → ED HOLD 20:52 → PCU 3S 09-23 00:33 → ED HOLD 09-23 00:33
PROVIDERS: ADMIT Surgery; ATTEND Internal Medicine
PROC: 0DB58ZX Excision of Esophagus, Via Natural or Artificial Opening Endoscopic, Diagnostic (ICD-10-PCS; principal; 2024-09-23)
DX: K20.91 Esophagitis, unspecified with bleeding (principal); N17.0 Acute kidney failure with tubular necrosis; I50.32 Chronic diastolic (congestive) heart failure; D50.9 Iron deficiency anemia, unspecified; Z20.822 Contact with and (suspected) exposure to COVID-19; I25.10 Atherosclerotic heart disease of native coronary artery without angina pectoris; I35.0 Nonrheumatic aortic (valve) stenosis; E11.65 Type 2 diabetes mellitus with hyperglycemia; K44.9 Diaphragmatic hernia without obstruction or gangrene; J44.89 Other specified chronic obstructive pulmonary disease; E66.811 Obesity, class 1; I48.91 Unspecified atrial fibrillation; I11.0 Hypertensive heart disease with heart failure; D72.810 Lymphocytopenia; F41.9 Anxiety disorder, unspecified; I45.5 Other specified heart block; R82.71 Bacteriuria; J44.9 Chronic obstructive pulmonary disease, unspecified; Z88.1 Allergy status to other antibiotic agents; Z88.5 Allergy status to narcotic agent; Z79.01 Long term (current) use of anticoagulants; Z85.41 Personal history of malignant neoplasm of cervix uteri; Z79.899 Other long term (current) drug therapy; Z68.31 Body mass index [BMI] 31.0-31.9, adult
CPT/HCPCS: 36415; 43239; 70450; 71045; 80053; 80061; 81001; 81003; 82272; 83036; 83540; 83550; 83735; 83880; 84145; 84443; 84484; 85007; 85025; 85027; 85610; 85730; 86885; 86900; 86901; 86920; 87081; 87088; 87502; 87503; 87811; 93005; 94640; 94760; 96374; 97161; 97530; 99153; 99285; A4620; G0378; J0696; J1940; J2250; J2470; J3010; J7030

== ENCOUNTER 2024-10-12 17:30 | Inpatient (IN) | payer MEDICARE, BC ==
[~2024-10-12] VITALS: Ht 165.1 cm; Wt 83.6 kg
[~2024-10-12 17:30] MED LIST changes: -ASPI-1397 PO; -CEFD300C3 PO; +FERR324T4 PO; -FLUT1DIS4 INH; +NITR0.3T SL; -NYST100069 PO; +PANT40TA54 PO; -SACU1TAB PO; +SACU1TAB7 PO; -SPIR25TA5 PO
[2024-10-12 18:19] LABS: HEMATOCRIT 30.4 % (35.0-45.0); HEMOGLOBIN 9.3 g/dl (12.0-16.0); MEAN CORPUSCULAR HEMOGLOBIN 22.6 PG (27.0-31.0); MEAN CORPUSCULAR HGB CONC 30.6 g/dL (33.0-36.5); MEAN CORPUSCULAR VOLUME 73.7 FL (78-98); MEAN PLATELET VOLUME 8.1 FL (7.4-10.4); PLATELET COUNT 327 X10'3 (140-440); RED BLOOD COUNT 4.13 X10'6 (4.20-5.60); RED CELL DISTRIBUTION WIDTH 24.5 % (11.5-14.5)
[2024-10-12 18:27] LABS: ALANINE AMINOTRANSFERASE 15 U/L (12-78); ALBUMIN 3.8 G/DL (3.4-5.0); ALKALINE PHOSPHATASE 67 IU/L (46-116); ANION GAP 8 (8-16); ASPARTATE AMINO TRANSFERASE 8 U/L (10-37); BILIRUBIN,TOTAL 0.4 MG/DL (0.1-1.0); BLOOD UREA NITROGEN 14 MG/DL (7-18); BUN/CREATININE RATIO 25.5 (10.0-20.0); CALCIUM 9.2 MG/DL (8.5-10.1); CHLORIDE 108 MMOL/L (99-107); CREATININE 0.55 MG/DL (0.40-0.90); GLUCOSE 109 MG/DL (70-104); POTASSIUM 3.6 MMOL/L (3.5-5.1); SODIUM 143 MMOL/L (135-145); TOTAL CARBON DIOXIDE 27.5 MMOL/L (24-32); TOTAL PROTEIN 7.5 G/DL (6.4-8.2); eCRCL 70 ML/MIN; eGFR > 90 ML/MIN
[2024-10-12 18:35] LABS: PRO BRAIN NATRIURETIC PEPTIDE 337 PG/ML (0-450)
[2024-10-12 19:00] LABS: TOTAL CELLS COUNTED 100
[2024-10-12 19:01] LABS: ANISOCYTOSIS 3+; MICROCYTOSIS 1+; PLATELET ESTIMATE NORMAL
[2024-10-12 19:02] LABS: ELLIPTOCYTES FEW; SCHISTOCYTES FEW
[2024-10-12] MEDS: aspirin 81mg tab.chew PO ONE (21:58)
[2024-10-12] MEDS: normal saline 1000ML IV soln IVB ONE (21:59)
[2024-10-12 22:52] LABS: APTT 28 SECONDS (22-32); INR 1.1 INR; PROTHROMBIN TIME 11.2 SECONDS (9.0-12.0)
[2024-10-13] VITALS (9 sets, daily range): BP systolic 94–141; BP diastolic 57–81; PULSE 77–123; RESP 14–22; TEMP 97–97.6; O2SAT 90–98
[2024-10-13] MEDS ORDERED: potassium Cl 20 mEq SR tablet PO PRN ×2 (00:45)
[2024-10-13] MEDS ORDERED: ondansetron/PF 4mg/2ml inj IV PRN (00:45)
[2024-10-13] MEDS ORDERED: morphine 2 MG/ML inj. syringe IV PRN (00:45)
[2024-10-13] MEDS ORDERED: magnesium hydroxide 30ml (MOM) UD suspension PO PRN (00:45)
[2024-10-13] MEDS ORDERED: magnesium Cl slow-release 64mg tablet PO PRN (00:45)
[2024-10-13] MEDS ORDERED: acetaminophen 325mg tablet PO PRN (00:45)
[2024-10-13] MEDS ORDERED: magnesium sulf-water 2g/50mL 50 ML IV PRN (00:45)
[2024-10-13] MEDS ORDERED: mag hydrox/Alum hydrox/simeth 30ml oral suspension PO PRN (00:45)
[2024-10-13] MEDS ORDERED: potassium Cl 40MEQ/1/2NS 520ml 520 ML IV PRN (00:45)
[2024-10-13] MEDS ORDERED: magnesium sulf-water 4G/100mL 100 ML IV PRN (00:45)
[2024-10-13 01:40] LABS: BILIRUBIN,URINE NEGATIVE (Neg); CLARITY,URINE CLEAR (Clear); COLOR,URINE YELLOW (Yellow); GLUCOSE, URINE NEGATIVE (Neg); KETONES,URINE NEGATIVE (Neg); LEUKOCYTE ESTERASE ,URINE NEGATIVE (Neg); NITRITES, URINE NEGATIVE (Neg); OCCULT BLOOD,URINE NEGATIVE (Neg); PH,URINE 6.5 (4.8-8.0); PROTEIN,URINE NEGATIVE (Neg); UROBILINOGEN,URINE 0.2 E.U/dL (0.2-1.0)
[2024-10-13 02:08] LABS: UA COLLECTION TYPE CLN CATCH MIDSTREAM
[2024-10-13] MEDS ORDERED: nitroGLYCERIN 0.4mg SUBLingual tab SL ONE (03:50)
[2024-10-13] MEDS: metoprolol tartrate 1mg/ml inj IV SCH (04:20)
[2024-10-13 07:11] LABS: MAGNESIUM 1.8 MG/DL (1.5-2.4)
[2024-10-13] MEDS: K and/or MAG REPLACEMENT MC SCH (08:00)
[2024-10-13] MEDS: docusate sod 100mg capsule PO SCH (08:00)
[2024-10-13 08:42] LABS: ALANINE AMINOTRANSFERASE 8 U/L (12-78); ALBUMIN/GLOBULIN RATIO 0.9 (1.1-1.5); ALKALINE PHOSPHATASE 52 IU/L (46-116); ANION GAP 8 (8-16); ASPARTATE AMINO TRANSFERASE 14 U/L (10-37); BILIRUBIN,TOTAL 0.4 MG/DL (0.1-1.0); BLOOD UREA NITROGEN 11 MG/DL (7-18); BUN/CREATININE RATIO 17.5 (10.0-20.0); CALCIUM 8.5 MG/DL (8.5-10.1); CHLORIDE 108 MMOL/L (99-107); CREATININE 0.63 MG/DL (0.40-0.90); GLUCOSE 95 MG/DL (70-104); POTASSIUM 3.5 MMOL/L (3.5-5.1); SODIUM 142 MMOL/L (135-145); TOTAL CARBON DIOXIDE 26.1 MMOL/L (24-32); TOTAL PROTEIN 6.2 G/DL (6.4-8.2); eCRCL 64 ML/MIN; eGFR > 90 ML/MIN
[2024-10-13 08:51] LABS: BASOPHILS # (AUTO) 0.1 X10'3 (0-0.2); BASOPHILS % (AUTO) 1.6 % (0-1); EOSINOPHILS # (AUTO) 0.1 X10'3 (0-0.9); EOSINOPHILS % (AUTO) 2.6 % (0-6); HEMATOCRIT 28.7 % (35.0-45.0); HEMOGLOBIN 8.7 g/dl (12.0-16.0); LYMPHOCYTES # (AUTO) 0.7 X10'3 (1.1-4.8); LYMPHOCYTES % (AUTO) 16.5 % (21-51); MEAN CORPUSCULAR HEMOGLOBIN 22.6 PG (27.0-31.0); MEAN CORPUSCULAR HGB CONC 30.4 g/dL (33.0-36.5); MEAN CORPUSCULAR VOLUME 74.5 FL (78-98); MEAN PLATELET VOLUME 8.8 FL (7.4-10.4); MONOCYTES # (AUTO) 0.5 X10'3 (0-0.9); NEUTROPHILS # (AUTO) 2.9 X10'3 (1.8-7.7); NEUTROPHILS % (AUTO) 67.3 % (42-75); PLATELET COUNT 298 X10'3 (140-440); RED BLOOD COUNT 3.85 X10'6 (4.20-5.60); RED CELL DISTRIBUTION WIDTH 23.4 % (11.5-14.5); WHITE BLOOD COUNT 4.4 X10'3 (4.5-11.0)
[2024-10-13] MEDS: aspirin 81mg, enteric-coated 1 TAB TABLET.DR PO SCH (09:06)
[2024-10-13] MEDS: metoprolol succinate 25mg (24-HOUR) SR. Tablet PO SCH (09:09)
[2024-10-13] MEDS: sacubitril/valsartan 49mg-51mg tablet PO SCH (09:10)
[2024-10-13] MEDS: furosemide 20 MG/2 ML vial IV SCH (11:19)
[2024-10-13] MEDS: pantoprazole 40 MG vial IV SCH (11:19)
[2024-10-13] MEDS: atorvastatin 20mg tablet PO SCH (11:19)
[2024-10-13] MEDS: apixaban 5mg tablet PO SCH (11:20)
[2024-10-13] MEDS: heparin, porcine 5000 units/ml vial SQ SCH (11:21)
[2024-10-13] MEDS: ferrous sulfate 325mg tablet PO SCH (21:06)
[2024-10-13] MEDS: apixaban 2.5mg tablet PO SCH (21:06)
[2024-10-13] MEDS: nystatin 15 GM powder TP SCH (21:07)
[2024-10-14 02:00] VITALS: BP 150/76; PULSE 71; RESP 19; TEMP 97.4; O2SAT 93
[2024-10-14] MEDS: HYDROcodone/acetaminophen 5mg/325mg tablet PO PRN (03:08)
[2024-10-14 06:00] VITALS: BP 157/66; PULSE 68; RESP 17; TEMP 97.9; O2SAT 92
[2024-10-14 07:25] LABS: EOSINOPHILS # (AUTO) 0.1 X10'3 (0-0.9); EOSINOPHILS % (AUTO) 2.8 % (0-6); HEMATOCRIT 29.1 % (35.0-45.0); HEMOGLOBIN 8.9 g/dl (12.0-16.0); LYMPHOCYTES # (AUTO) 0.6 X10'3 (1.1-4.8); MEAN CORPUSCULAR HEMOGLOBIN 22.7 PG (27.0-31.0); MEAN CORPUSCULAR HGB CONC 30.5 g/dL (33.0-36.5); MEAN CORPUSCULAR VOLUME 74.6 FL (78-98); MEAN PLATELET VOLUME 8.6 FL (7.4-10.4); MONOCYTES # (AUTO) 0.3 X10'3 (0-0.9); MONOCYTES % (AUTO) 6.9 % (2-12); NEUTROPHILS % (AUTO) 78.3 % (42-75); PLATELET COUNT 292 X10'3 (140-440); RED CELL DISTRIBUTION WIDTH 24.8 % (11.5-14.5); WHITE BLOOD COUNT 5.1 X10'3 (4.5-11.0)
[2024-10-14 07:36] LABS: ALANINE AMINOTRANSFERASE 17 U/L (12-78); ALBUMIN 3.3 G/DL (3.4-5.0); ALKALINE PHOSPHATASE 61 IU/L (46-116); ANION GAP 7 (8-16); ASPARTATE AMINO TRANSFERASE 34 U/L (10-37); BILIRUBIN,TOTAL 0.5 MG/DL (0.1-1.0); BLOOD UREA NITROGEN 20 MG/DL (7-18); BUN/CREATININE RATIO 18.7 (10.0-20.0); CALCIUM 8.9 MG/DL (8.5-10.1); CHLORIDE 104 MMOL/L (99-107); CHOL/HDL RATIO 3.6 (0.00-4.99); CHOLESTEROL 182 MG/DL (0-200); CREATININE 1.07 MG/DL (0.40-0.90); GLUCOSE 98 MG/DL (70-104); HDL CHOLESTEROL 51 MG/DL (35-60); LDL CHOLESTEROL 101 MG/DL (50-100); MAGNESIUM 1.8 MG/DL (1.5-2.4); SODIUM 140 MMOL/L (135-145); TOTAL CARBON DIOXIDE 29.1 MMOL/L (24-32); TOTAL PROTEIN 6.7 G/DL (6.4-8.2); TRIGLYCERIDES 95 MG/DL (20-135); eCRCL 38 ML/MIN; eGFR 49 ML/MIN
[2024-10-14 08:00] VITALS: RESP 17; O2SAT 92
[2024-10-14 08:56] LABS: ANISOCYTOSIS 3+; HYPOCHROMASIA 1+; MICROCYTOSIS 1+; PLATELET ESTIMATE NORMAL; POLYCHROMASIA FEW; SCHISTOCYTES FEW
[2024-10-14 11:00] VITALS: BP 130/76; PULSE 68; RESP 20; TEMP 97.7; O2SAT 95
[2024-10-14] MEDS ORDERED: ATOR20TA66 PO (11:24)
[2024-10-14] MEDS ORDERED: METO-395 PO (11:28)
== END 2024-10-14 17:41 | disposition home or self-care (01) | DRG 280 ==
LOC: ER 17:31 → ED HOLD 21:53 → PCU 3S 10-13 02:15
PROVIDERS: ADMIT Internal Medicine Critical Care Medicine; ATTEND Internal Medicine
DX: I48.91 Unspecified atrial fibrillation (principal); N17.0 Acute kidney failure with tubular necrosis; I21.A1 Myocardial infarction type 2; I50.32 Chronic diastolic (congestive) heart failure; I35.0 Nonrheumatic aortic (valve) stenosis; I25.10 Atherosclerotic heart disease of native coronary artery without angina pectoris; F41.9 Anxiety disorder, unspecified; I11.0 Hypertensive heart disease with heart failure; K21.9 Gastro-esophageal reflux disease without esophagitis; J45.909 Unspecified asthma, uncomplicated; D50.9 Iron deficiency anemia, unspecified; Z88.1 Allergy status to other antibiotic agents; Z79.899 Other long term (current) drug therapy; Z90.710 Acquired absence of both cervix and uterus; Z85.41 Personal history of malignant neoplasm of cervix uteri; Z90.49 Acquired absence of other specified parts of digestive tract; Z79.01 Long term (current) use of anticoagulants; Z95.5 Presence of coronary angioplasty implant and graft; Z88.5 Allergy status to narcotic agent
CPT/HCPCS: 36415; 71045; 71250; 80053; 80061; 81003; 83735; 83880; 84484; 85007; 85008; 85025; 85610; 85730; 87081; 93005; 99285; G0378; J1644; J1940; J2470; J3490; J7030

== ENCOUNTER 2024-11-11 13:28 | Outpatient (CLI) | payer MEDICARE, BC ==
[~2024-11-11] VITALS: Ht 185.4 cm; Wt 83.9 kg
[~2024-11-11 13:28] MED LIST changes: +ATOR-2 PO; +CLOP-32 PO; -FERR324T4 PO; +FERR325T28 PO; +FURO20TA4 PO; -HYDR50TA46 PO; +IODIXANOL 320 MG/ML INFUS..BTL 100ML IV ONE; +LAN0.125T PO; +METO-395 PO; +PANT-47 PO; -PANT40TA54 PO; +SACU1TAB PO; -SACU1TAB7 PO
[2024-11-11 14:02] LABS: BASOPHILS # (AUTO) 0.1 X10'3 (0-0.2); BASOPHILS % (AUTO) 1.6 % (0-1); EOSINOPHILS # (AUTO) 0.1 X10'3 (0-0.9); EOSINOPHILS % (AUTO) 1.9 % (0-6); HEMATOCRIT 44.1 % (35.0-45.0); LYMPHOCYTES # (AUTO) 0.8 X10'3 (1.1-4.8); MEAN CORPUSCULAR HEMOGLOBIN 25.8 PG (27.0-31.0); MEAN CORPUSCULAR HGB CONC 31.7 g/dL (33.0-36.5); MEAN CORPUSCULAR VOLUME 81.3 FL (78-98); MEAN PLATELET VOLUME 9.3 FL (7.4-10.4); MONOCYTES # (AUTO) 0.5 X10'3 (0-0.9); MONOCYTES % (AUTO) 7.2 % (2-12); NEUTROPHILS # (AUTO) 4.9 X10'3 (1.8-7.7); NEUTROPHILS % (AUTO) 76.3 % (42-75); PLATELET COUNT 286 X10'3 (140-440); RED BLOOD COUNT 5.42 X10'6 (4.20-5.60); RED CELL DISTRIBUTION WIDTH 29.1 % (11.5-14.5); WHITE BLOOD COUNT 6.4 X10'3 (4.5-11.0)
[2024-11-11 14:18] LABS: APTT 31 SECONDS (22-32); INR 1.1 INR; PROTHROMBIN TIME 11.4 SECONDS (9.0-12.0)
[2024-11-11 14:26] LABS: ALANINE AMINOTRANSFERASE 18 U/L (12-78); ALBUMIN 3.6 G/DL (3.4-5.0); ALKALINE PHOSPHATASE 74 IU/L (46-116); ANION GAP 5 (8-16); ASPARTATE AMINO TRANSFERASE 9 U/L (10-37); BILIRUBIN,TOTAL 0.4 MG/DL (0.1-1.0); BLOOD UREA NITROGEN 21 MG/DL (7-18); BUN/CREATININE RATIO 22.8 (10.0-20.0); CALCIUM 8.9 MG/DL (8.5-10.1); CHLORIDE 103 MMOL/L (99-107); CREATININE 0.92 MG/DL (0.40-0.90); GLUCOSE 126 MG/DL (70-104); POTASSIUM 3.6 MMOL/L (3.5-5.1); PRO BRAIN NATRIURETIC PEPTIDE 4806 PG/ML (0-450); SODIUM 142 MMOL/L (135-145); TOTAL CARBON DIOXIDE 33.8 MMOL/L (24-32); TOTAL PROTEIN 7.2 G/DL (6.4-8.2); eGFR 59 ML/MIN
[2024-11-11 14:42] LABS: ANISOCYTOSIS 3+; ELLIPTOCYTES FEW; PLATELET ESTIMATE NORMAL; STOMATOCYTES FEW
[2024-11-11] MEDS: albuterol 2.5 MG/3 ML nebule NEB ONE (17:07)
[2024-11-11 17:17] VITALS: PULSE 72; RESP 12; O2SAT 94
[2024-11-11 17:22] LABS: ABG BASE EXCESS 2.7 mmol/L (-2.0-3.0); ABG HCO3 25.9 mmol/L (21.0-28.0); ABG OXYGEN SATURATION 95.2 % (94.0-98.0); ABG PCO2 (T) 35.4 mmHg (32.0-45.0); ABG PH (T) 7.482 (7.350-7.450); ABG PO2 (T) 75.4 mmHg (83.0-108.0); ALLEN'S TEST POSITIVE; FHHb 4.7 % (0.0-5.0); FMetHb 0.1 % (0.0-1.5); FO2Hb 94.2 % (94.0-98.0); MODE ROOM AIR; TOTAL HEMOGLOBIN 14.8 G/dl (12.0-16.0)
[2024-11-11 17:45] VITALS: PULSE 55; RESP 15
== END 2024-11-11 23:59 | disposition home or self-care (01) ==
LOC: RAD 13:28
PROVIDERS: ATTEND Internal Medicine Cardiovascular Disease
DX: I25.10 Atherosclerotic heart disease of native coronary artery without angina pectoris (principal); R06.02 Shortness of breath; I65.9 Occlusion and stenosis of unspecified precerebral artery; E04.1 Nontoxic single thyroid nodule; I35.0 Nonrheumatic aortic (valve) stenosis; K42.9 Umbilical hernia without obstruction or gangrene; K44.9 Diaphragmatic hernia without obstruction or gangrene; Z90.49 Acquired absence of other specified parts of digestive tract; J98.11 Atelectasis; K57.30 Diverticulosis of large intestine without perforation or abscess without bleeding; M43.16 Spondylolisthesis, lumbar region; M43.8X6 Other specified deforming dorsopathies, lumbar region
CPT/HCPCS: 36415; 36600; 71046; 71275; 74174; 75572; 80053; 82803; 83880; 85008; 85018; 85025; 85610; 85730; 94060; 94727; 94729; 94760; Q9967

== ENCOUNTER 2024-11-17 09:27 | Outpatient (CLI) | payer MEDICARE, BC ==
[~2024-11-17] VITALS: Ht 162.6 cm; Wt 87.8 kg
[~2024-11-17 09:27] MED LIST changes: -IODIXANOL 320 MG/ML INFUS..BTL 100ML IV ONE
[2024-11-17] MEDS ORDERED: BUPIVAcaine 2.5mg/ml inj 50ml vial (contains preservative) ONE (09:57)
[2024-11-17] MEDS ORDERED: bacitracin 15gm ointment TP ONE (09:57)
[2024-11-17 15:32] VITALS: BP 154/115; PULSE 129; RESP 18; TEMP 97.8; O2SAT 97
[2024-12-14] MEDS ORDERED: FURO20TA4 PO (20:00)
[2024-12-14] MEDS ORDERED: DIGO125T2 PO (20:01)
[2024-12-14] MEDS ORDERED: SACU1TAB PO (20:07)
[2024-12-14] MEDS ORDERED: LOP12.5T PO (20:11)
== END 2024-11-17 23:59 | disposition home or self-care (01) ==
LOC: TAVR 09:27
PROVIDERS: ATTEND Internal Medicine Cardiovascular Disease
DX: I35.0 Nonrheumatic aortic (valve) stenosis (principal); R06.02 Shortness of breath; I65.29 Occlusion and stenosis of unspecified carotid artery; G47.33 Obstructive sleep apnea (adult) (pediatric); I10 Essential (primary) hypertension; I25.10 Atherosclerotic heart disease of native coronary artery without angina pectoris; I48.91 Unspecified atrial fibrillation; Z79.01 Long term (current) use of anticoagulants; Z79.899 Other long term (current) drug therapy; Z85.820 Personal history of malignant melanoma of skin; Z88.1 Allergy status to other antibiotic agents; Z88.5 Allergy status to narcotic agent; Z90.710 Acquired absence of both cervix and uterus; Z95.2 Presence of prosthetic heart valve
CPT/HCPCS: J3490

== ENCOUNTER 2025-01-12 05:53 | Inpatient (IN) | payer MEDICARE, BC ==
[2025-01-04 10:41] LABS: BILIRUBIN,URINE NEGATIVE (Neg); COLOR,URINE YELLOW (Yellow); GLUCOSE, URINE NEGATIVE (Neg); KETONES,URINE NEGATIVE (Neg); LEUKOCYTE ESTERASE ,URINE NEGATIVE (Neg); NITRITES, URINE NEGATIVE (Neg); OCCULT BLOOD,URINE TRACE-INTACT (Neg); PROTEIN,URINE NEGATIVE (Neg); UROBILINOGEN,URINE 0.2 E.U/dL (0.2-1.0)
--- NOTE | 2025-01-04 10:45 | ELECTROCARDIOGRAPH REPORT ---
[facility] Test Date: 2025-01-04 Test Time: 10:42:52 Pat Name: GREG SILVERIO Department: PRE/OP CARDIOLOGY Room: Gender: F Shoe Stitcher Odd: claude : 1945 Requested By: SHERRI SUNG Order Number: [id number] Reading MD: Dr. MALIHA Johnson Measurements Intervals [place] Rate: 48 P: 39 [place]: 187 QRS: 32 QRSD: 84 T: 212 QT: 498 QTc: 445 Interpretive Statements Sinus bradycardia Abnormal R-wave progression, early transition Probable LVH with secondary repol abnrm Abnormal T, probable ischemia, anterior leads Electronically Signed On 01-04-2025 19:01:[address] MALIHA Johnson Please click the below link to view image of tracing.
[2025-01-04 10:46] LABS: UA COLLECTION TYPE VOIDED
[2025-01-04 10:55] LABS: PRE OP INR 1.1 INR; PRE OP PROTIME 10.9 SECONDS (9.0-12.0)
[2025-01-04 10:57] LABS: CLARITY,URINE CLEAR (Clear)
[2025-01-04 10:59] LABS: WBC,URINE 0-4 /HPF (0-4)
[2025-01-04 11:00] LABS: BACTERIA,URINE FEW /HPF (Neg); SQUAMOUS EPITHELIAL CELL,UR MODERATE /LPF (FEW)
[2025-01-04 11:01] LABS: BASOPHILS # (AUTO) 0.1 X10'3 (0-0.2); BASOPHILS % (AUTO) 1.2 % (0-1); EOSINOPHILS # (AUTO) 0.1 X10'3 (0-0.9); EOSINOPHILS % (AUTO) 2.7 % (0-6); LYMPHOCYTES # (AUTO) 0.4 X10'3 (1.1-4.8); LYMPHOCYTES % (AUTO) 9.1 % (21-51); MEAN CORPUSCULAR HEMOGLOBIN 28.4 PG (27.0-31.0); MEAN CORPUSCULAR HGB CONC 32.9 g/dL (33.0-36.5); MEAN CORPUSCULAR VOLUME 86.1 FL (78-98); MEAN PLATELET VOLUME 8.8 FL (7.4-10.4); MONOCYTES # (AUTO) 0.5 X10'3 (0-0.9); MONOCYTES % (AUTO) 9.1 % (2-12); NEUTROPHILS # (AUTO) 3.8 X10'3 (1.8-7.7); NEUTROPHILS % (AUTO) 77.9 % (42-75); PRE OP HEMATOCRIT 41.1 % (35.0-45.0); PRE OP HEMOGLOBIN 13.5 g/dL (12.0-16.0); PRE OP PLATELET COUNT 276 X10'3 (140-440); PRE OP WHITE BLOOD COUNT 4.9 10'3 (4.8-10.8); RED BLOOD COUNT 4.77 X10'6 (4.20-5.60); RED CELL DISTRIBUTION WIDTH 21.4 % (11.5-14.5)
[2025-01-04 11:06] LABS: ALBUMIN 3.6 G/DL (3.4-5.0); ALKALINE PHOSPHATASE 69 IU/L (46-116); BLOOD UREA NITROGEN 18 MG/DL (7-18); BUN/CREATININE RATIO 23.7 (10.0-20.0); CALCIUM 8.9 MG/DL (8.5-10.1); CHLORIDE 104 MMOL/L (99-107); CREATININE 0.76 MG/DL (0.40-0.90); PRE OP ALT 25 U/L (30-65); PRE OP ANION GAP 7 (8-16); PRE OP AST 15 U/L (10-37); PRE OP BILIRUB, TOTAL 0.6 MG/DL (0.0-1.0); PRE OP GLUCOSE 110 MG/DL (70-104); PRE OP POTASSIUM 3.8 MMOL/L (3.4-5.1); PRE OP SODIUM 144 MMOL/L (135-145); PRO BRAIN NATRIURETIC PEPTIDE 583 PG/ML (0-450); TOTAL CARBON DIOXIDE 32.9 MMOL/L (24-32); TOTAL PROTEIN 7.2 G/DL (6.4-8.2); eGFR 73 ML/MIN
--- NOTE | 2025-01-04 11:10 | RADIOLOGY REPORT ---
EXAM: DI CHEST,TWO VIEWS CLINICAL HISTORY: pain COMPARISON: DI CHEST,TWO VIEWS on DOS: 11/11/24 TECHNIQUE: Frontal and lateral view of the chest was obtained FINDINGS: Lines and Tubes: None Lungs: No focal consolidation. Pleura: No effusion. No pneumothorax. Cardiomediastinal contours:Cardiomegaly. Large hiatal hernia. Bones: No acute osseous abnormality. IMPRESSION: Cardiomegaly. Large hiatal hernia.
[~2025-01-12] VITALS: Ht 157.5 cm; Wt 82.7 kg
[2025-01-12] VITALS (35 sets, daily range): BP systolic 121–177; BP diastolic 65–97; PULSE 48–70; RESP 9–30; TEMP 97–98.4; O2SAT 90–99
[2025-01-12] MEDS: DOCUMENT DATE & TIME OF BETA-BLOCKER PO ONE (05:30)
[2025-01-12] MEDS: phenylephrine inj 50 MG in normal saline 250ml IV solN IV SCH (05:30)
[2025-01-12] MEDS: famotidine 20mg tablet PO ONE (05:30)
[2025-01-12] MEDS: ceFAZolin 2gm in dextrose, iso 50 ML IV ONE (05:30)
[2025-01-12] MEDS: nitroPRUSSIDE (NIPRIDE) (200MCG/ML) 100ML Drip IV SCH (05:30)
[~2025-01-12 05:53] MED LIST changes: +AMIO200T27 PO; -ATOR-2 PO; -CLOP-32 PO; -LAN0.125T PO; +LOP12.5T PO; -METO-395 PO; -NITR0.3T SL; -PANT-47 PO; +PANT40TA54 PO; +ondansetron/PF 4mg/2ml inj IV PRN
[2025-01-12] MEDS ORDERED: protamine sulfate 10mg/ml inj. ONE (06:23)
[2025-01-12] MEDS: aspirin 325mg tablet PO ONE (06:49)
[2025-01-12] MEDS: VANCOMYCIN/WATER FOR INJ (PEG) 1.5GM/300 ML IVPB IV ONE (06:49)
[2025-01-12] MEDS ORDERED: acetaminophen 1,000mg/100ml IV 100 ML IV PRN (07:10)
[2025-01-12] MEDS ORDERED: morphine 4 MG/ML inj SYRINge IV PRN (07:10)
[2025-01-12] MEDS ORDERED: ondansetron/PF 4mg/2ml inj IV PRN ×2 (07:10→09:50)
[2025-01-12] MEDS ORDERED: proCHLORperazine 10 MG/2 ml inj IV PRN ×2 (07:10→09:50)
[2025-01-12] MEDS ORDERED: morphine 2 MG/ML inj. syringe IV PRN (07:10)
[2025-01-12] MEDS ORDERED: meperidine/PF 25mg/ml syringe IV PRN (07:10)
[2025-01-12] MEDS ORDERED: labetalol 20mg/4ml (5mg/ml) syringe IV PRN ×2 (07:10→09:50)
[2025-01-12] MEDS ORDERED: HYDROmorphone/PF 0.2 MG/ML SYRINGE IV PRN ×2 (07:10)
[2025-01-12] MEDS ORDERED: LIDOcaine 1% 30ml preserv. free vial ONE (08:19)
[2025-01-12] MEDS ORDERED: non-formulary drug (Albuterol Sulfate (Proventil Hfa) 2 PUFFS) INH SCH (08:20)
[2025-01-12] MEDS ORDERED: heparin 1,000 UNITS/NS 500ml 1,500 ML ONE (08:20)
[2025-01-12] MEDS ORDERED: iohexol 350MG/ML 100ml bottle IV ONE (08:20)
[2025-01-12] MEDS ORDERED: fentaNYL/PF 50MCG/1 ML 2ML syringe ONE (08:40)
[2025-01-12] MEDS ORDERED: midazolam 1 mg/ML 2ml injection ONE (08:41)
[2025-01-12] MEDS ORDERED: heparin 1,000unit/ml 10ml vial 10 ML ONE (09:28)
[2025-01-12] MEDS ORDERED: propofol inj 20 ML IV ONE ×2 (09:29)
[2025-01-12] MEDS ORDERED: potassium Cl 40MEQ/1/2NS 520ml 520 ML IV PRN (09:50)
[2025-01-12] MEDS ORDERED: magnesium sulf-water 2g/50mL 50 ML IV PRN (09:50)
[2025-01-12] MEDS ORDERED: diphenhydrAMINE 25mg capsule PO PRN (09:50)
[2025-01-12] MEDS ORDERED: potassium Cl 40MEQ/270ML bag 250 ML IV PRN (09:50)
[2025-01-12] MEDS ORDERED: pantoprazole 40mg Tablet.DR PO PRN (09:50)
[2025-01-12] MEDS ORDERED: ALPRAZolam 0.25mg tablet PO PRN (09:50)
[2025-01-12] MEDS ORDERED: potassium CL 10mEq/100ml bag 100 ML IV PRN (09:50)
[2025-01-12] MEDS ORDERED: hydrALAZINE 20mg/ml inj. IV PRN (09:50)
[2025-01-12] MEDS ORDERED: potassium Cl 20mEq/100mL bag 100 ML IV PRN (09:50)
[2025-01-12] MEDS ORDERED: LIDOCAINE 2%/EPI 1:100,000 inj. Multi-dose 20 ML VIAL ONE (09:54)
--- NOTE | 2025-01-12 09:54 | OPERATIVE REPORT ---
Operative Report Providers to CC CC: EFREN ELIZABETH MD ~ Date of Procedure: January 12, 2025 Pre-Operative Diagnosis: Severe Aortic Stenosis Post-Operative Diagnosis SAME as PRE-Op Procedure Performed 1. Ultrasound-guided access, bilateral femoral vessels. 2. Bilateral femoral angiography. 3. Ascending aortography 4. Temporary transvenous pacer to the RV apex. 5. Placement of a 23 mm David S3 Resilia valve. Surgeon: Tracee Elizabeth MD Phytopathologist MD Dr. Kevin Hollingsworth MD Anesthesiologist: Andreas Vega Type of Anesthesia: Other Findings: Severe Aortic Stenosis Complications None Prosthetics\Implants used: David 23mm S3 Resilia Estimated Blood Loss: Minimal Specimen Removed: None Description of Procedure: The patient was brought to the field laborer in a fasting state. They underwent MAC anesthesia. Ultrasound was used to guide access to the bilateral femoral vessels, 7-British sheath, left femoral artery, 6-British sheath, right femoral artery and left femoral vein. Bilateral femoral angiograms were obtained. Heparin was given to maintain an ACT over 250 seconds. Two crisscross Percloses were placed on the right. We upsized to an 8-British sheath. Two pigtail catheters placed in the ascending aorta. Ascending aortography done to determine the angle of deployment. Temporary transvenous pacer to the RV apex and confirmed capture. We upsized an 8-British sheath to a 14-British David eSheath on the right. We crossed the aortic valve using a straight stiff exchange length Terumo wire supported by a 6-British AL1 catheter. LV AO pressures were recorded. A Cook extra support wire was placed in the left ventricle. A 23mm David S3 Resilia valve was brought to position and under rapid right ventricular pacing was deployed. Post-procedure, there was no AI and no residual . Guidewires and balloons were removed at this time. The temporary pacer was removed. The 14-British David eSheath was removed and two crisscross Percloses tied with adequate hemostasis. The arterial sheath on the left was removed and a single Perclose tied. The venous sheath on the left was removed and a single Angioseal used for hemostasis. Protamine was given to reverse the effects of heparin. The patient was stable post-procedure. Good pulses in the legs and no evidence of bleeding, transferred to the PACU in stable condition. HEMODYNAMICS: Pre: LV: 139/11 mmHg LVEDP: 21mmHg Ao: 101/49, MAP 69mmHg Post: LV: 120/17 mmHg LVEDP: 28 mmHg Ao: 117/56, MAP 80mmHg RESULTS: 1. Successful placement of a 23 mm David S3 Resilia valve, right transfemoral approach, two perclose devices. Resume OAC In AM if no signs/symptoms of bleeding 2. Afib: Paroxysmal. Resume OAC as above 3. Hypertension: Resume if blood pressure remains stable 4. Acute on chronic diastolic heart failure, LVEDP 21mmHg, elevated pBNP. Hyperdynamic LV Patient will be watched in the recovery area until stable, then transferred to telemetry at that time. TRACEE ELIZABETH MD January 12, 2025 09:54
[2025-01-12] MEDS: ringers solution, lacted 1,000 ML IV SCH ×2 (10:08→10:14)
--- NOTE | 2025-01-12 10:19 | ELECTROCARDIOGRAPH REPORT ---
[facility] Test Date: 2025-01-12 Test Time: 10:17:50 Pat Name: GREG SILVERIO Department: [facility] Patient ID: [facility]-[id number] Room: [facility] IN [facility] B Gender: F Plsql Developer: DANII : 1945 Requested By: TRACEE RIVERA Order Number: [id number] Reading MD: Dr. MALIHA Johnson Measurements Intervals [place] Rate: 50 P: 52 SD: 202 QRS: -23 QRSD: 151 T: 139 QT: 557 QTc: 508 Interpretive Statements Sinus bradycardia Left bundle branch block Electronically Signed On 01-12-2025 12:18:[address] MALIHA Johnson Please click the below link to view image of tracing.
[2025-01-12] MEDS: hydrALAZINE 20mg/ml inj. IV PRN ×2 (11:59→15:17)
[2025-01-12] MEDS: normal saline 1000ml 1,000 ML IV SCH (13:45)
[2025-01-12] MEDS: acetaminophen 325mg tablet PO PRN (15:17)
--- NOTE | 2025-01-12 16:30 | CARDIOLOGY REPORT ---
APPROVED REPORT EXAM: Focused, limited intraprocedural transthoracc 2D, spectral and color flow Doppler echocardiogra m during TAVR deployment. 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 / Surgeon: Nishi CASILLAS MD. / Device rep: Candido Gambino ELS Previous echo: 10/24/24 [facility] HD EF: 75-80%; CAIO 1.05; PKV: 3.75; GRAD: 56-36; LVOT: 1.98; VHD: mMR; trTR; CLVH; LEFT VENTRICLE Small LV size with hyperdynamic function. Severe concentric hypertrophy. Increased velocities through out LV / AV / ASC AO detected as a result of the hyperdynamic function. Resting intercavitary gradien t of 10 mmHG, unable to valsalva due to anesthesia. LVEF is 80-85%. Intercavitary gradient increased to 15mmHG post deployment. RIGHT VENTRICLE RV is normal size and function. Thickened RV free wall. ATRIA Left atrium appears at least mildly dilated. AORTIC VALVE Trileaflet AV appears heavily calcified with significant stenosis demonstrated by reduced excursion a nd increased transvalvular and ascending aorta turbulance. CAIO is measured at 0.90 cmsq. Peak / mean gradients of 70 / 41 mmHG. Peak velocity is measured at 4.22 m/sec. No insufficiency. POST DEPLOYMENT (LOOP: 38): 23 mm Davdi Darlene 3 Ultra Resilia bioprosthetic TAVR appears well seated with normal function. No paravalvular leak detected. CAIO is measured at 2.40 cmsq. Peak / mean gradients of 22 / 12 mmHG. Peak velocity is measured at 2.43 m/sec. MITRAL VALVE Mild Moderate MV annular calcification without stenosis. Trace regurgitation. TRICUSPID VALVE TV appears structurally normal with trace regurgitation. PERICARDIUM Normal pericardium. No effusion.
[2025-01-12] MEDS: ceFAZolin 1GM/D5W- ADD-VANTAGE 50 ML IV SCH (16:52)
[2025-01-12] MEDS: sod chloride 0.9% 10ml flush syringe IV SCH (16:52)
[2025-01-12] MEDS: albuterol 2.5 MG/3 ML nebule NEB PRN (19:05)
[2025-01-12] MEDS: sacubitril/valsartan 24mg-26mg tablet PO SCH (19:48)
[2025-01-12] MEDS: metoprolol tartrate 50mg tablet PO SCH (19:49)
[2025-01-12] MEDS: pantoprazole 40mg Tablet.DR PO SCH (19:50)
[2025-01-12] MEDS: HYDROcodone/acetaminophen 5mg/325mg tablet PO PRN (19:51)
[2025-01-12] MEDS: amiodarone 200mg tablet PO SCH (20:09)
[2025-01-12] MEDS: vancomycin/NS 1 GM ADD-VANTAGE 200 ML IV SCH (20:09)
[2025-01-12] MEDS: docusate sod 100mg capsule PO PRN (20:09)
[2025-01-13 02:00] VITALS: BP 163/77; PULSE 52; RESP 19; TEMP 97.6; O2SAT 95
[2025-01-13 06:00] VITALS: BP 155/83; PULSE 55; RESP 17; TEMP 97.2; O2SAT 95
--- NOTE | 2025-01-13 07:11 | ELECTROCARDIOGRAPH REPORT ---
[facility] Test Date: 2025-01-13 Test Time: 07:08:36 Pat Name: GREG SILVERIO Department: [facility] 3S Room: [place] [address] A Gender: F Conference Assistant: : 1945 Requested By: TRACEE RIVERA Order Number: [id number] Reading MD: Dr. MALIHA Johnson Measurements Intervals [place] Rate: 58 P: 41 [place]: 181 QRS: -17 QRSD: 149 T: 143 QT: 523 QTc: 514 Interpretive Statements Sinus rhythm Probable left atrial enlargement Left bundle branch block Electronically Signed On 01-13-2025 16:13:[address] MALIHA Johnson Please click the below link to view image of tracing.
[2025-01-13 07:33] LABS: BASOPHILS # (AUTO) 0.1 X10'3 (0-0.2); BASOPHILS % (AUTO) 0.9 % (0-1); EOSINOPHILS # (AUTO) 0.2 X10'3 (0-0.9); EOSINOPHILS % (AUTO) 3.1 % (0-6); HEMATOCRIT 38.7 % (35.0-45.0); HEMOGLOBIN 12.9 g/dl (12.0-16.0); LYMPHOCYTES # (AUTO) 0.4 X10'3 (1.1-4.8); LYMPHOCYTES % (AUTO) 6.4 % (21-51); MEAN CORPUSCULAR HEMOGLOBIN 28.9 PG (27.0-31.0); MEAN CORPUSCULAR HGB CONC 33.3 g/dL (33.0-36.5); MEAN CORPUSCULAR VOLUME 86.8 FL (78-98); MEAN PLATELET VOLUME 9.1 FL (7.4-10.4); MONOCYTES # (AUTO) 0.5 X10'3 (0-0.9); MONOCYTES % (AUTO) 8.1 % (2-12); NEUTROPHILS # (AUTO) 5.2 X10'3 (1.8-7.7); NEUTROPHILS % (AUTO) 81.5 % (42-75); PLATELET COUNT 160 X10'3 (140-440); RED BLOOD COUNT 4.46 X10'6 (4.20-5.60); RED CELL DISTRIBUTION WIDTH 19.7 % (11.5-14.5); WHITE BLOOD COUNT 6.4 X10'3 (4.5-11.0)
--- NOTE | 2025-01-13 07:34 | RADIOLOGY REPORT ---
EXAM: XR Chest, 1 View CLINICAL INDICATION: s/p TAVR TECHNIQUE: Frontal view of the chest. COMPARISON: DI CHEST,SINGLE VIEW on DOS: 12/14/24, DI CHEST,SINGLE VIEW on DOS: 11/05/24, DI CHEST,SIN GLE VIEW on DOS: 10/24/24, DI CHEST,SINGLE VIEW on DOS: 10/12/24, DI CHEST,SINGLE VIEW on DOS: 09/22/24 FINDINGS: LUNGS AND PLEURAL SPACES: Unremarkable. No consolidation. No pneumothorax. HEART: Cardiomegaly without overt failure. MEDIASTINUM: Unremarkable. Normal mediastinal contour. BONES/JOINTS: Unremarkable. No acute fracture. OTHER FINDINGS: . IMPRESSION: Cardiomegaly without overt failure.
[2025-01-13 07:55] LABS: ANISOCYTOSIS 1+; ELLIPTOCYTES FEW; PLATELET ESTIMATE NORMAL
[2025-01-13 07:56] LABS: MICROCYTOSIS FEW
[2025-01-13 08:00] VITALS: RESP 14; O2SAT 95
[2025-01-13 08:02] LABS: ALANINE AMINOTRANSFERASE 13 U/L (12-78); ALBUMIN 3.3 G/DL (3.4-5.0); ALKALINE PHOSPHATASE 62 IU/L (46-116); ANION GAP 7 (8-16); ASPARTATE AMINO TRANSFERASE 15 U/L (10-37); BILIRUBIN,TOTAL 0.7 MG/DL (0.1-1.0); BLOOD UREA NITROGEN 10 MG/DL (7-18); BUN/CREATININE RATIO 16.1 (10.0-20.0); CALCIUM 8.7 MG/DL (8.5-10.1); CHLORIDE 106 MMOL/L (99-107); CREATININE 0.62 MG/DL (0.40-0.90); GLUCOSE 105 MG/DL (70-104); MAGNESIUM 1.9 MG/DL (1.5-2.4); POTASSIUM 3.7 MMOL/L (3.5-5.1); PRO BRAIN NATRIURETIC PEPTIDE 405 PG/ML (0-450); SODIUM 140 MMOL/L (135-145); TOTAL CARBON DIOXIDE 27.4 MMOL/L (24-32); TOTAL PROTEIN 6.5 G/DL (6.4-8.2); eCRCL 57 ML/MIN; eGFR > 90 ML/MIN
[2025-01-13] MEDS: furosemide 20MG tablet PO SCH (09:10)
[2025-01-13] MEDS: ferrous sulfate 325mg tablet PO SCH (09:10)
[2025-01-13] MEDS: aspirin 81mg tab.chew PO SCH (09:17)
[2025-01-13] MEDS: potassium Cl 20 mEq SR tablet PO PRN (10:13)
[2025-01-13] MEDS: magnesium sulf-water 4G/100mL 100 ML IV PRN (10:15)
[2025-01-13 11:00] VITALS: BP 160/70; PULSE 69; RESP 16; TEMP 97.3; O2SAT 95
[2025-01-13 11:55] VITALS: PULSE 61; RESP 16; O2SAT 95
--- NOTE | 2025-01-13 12:14 | CARDIOLOGY REPORT ---
APPROVED REPORT EXAM: Limited 2D, Doppler, and color-flow Echocardiogram. Patient Location: [facility] Blood Pressure: 144/65 mmHg Heart Rate: 65 bpm Indications ONE DAY FOLLOW-UP TAVR 23 mm David Darlene 3 Ultra RESILIA Bioprosthetic TAVR Air Brake Tester: Williams Elizabeth MD Previous echo: 01/12/25, [facility], EF: 80-85%; CAIO: 2.40; Peak v: 2.43; Grad: 2D Dimensions IVSd 1.1 (0.7-1.1cm) LVDd 5.0 cm PWd 1.1 (0.7-1.1cm) IVSs 2.0 (0.8-1.2cm) LVDs 2.2 (2.5-4.0cm) PWs 1.8 (0.8-1.2cm) LVOT Diameter 2.30 (1.8-2.4cm) LVEF(%) 85.8 (>50%) Ao Asc Diam.3.49 cmIVC 20.43 mm FS (%) 55.4 % SV 99.9 ml CO 6.8 L/min M-Mode Dimensions Left Atrium(MM) 4.94 (2.5-4.0cm) Aortic Root 2.80 (2.2-3.7cm) Aortic Valve AoV Peak Surjit. 311.0 cm/s AoV VTI 71.3 cm AO Peak GR. 38.7 mmHg AO Mean GR. 24 mmHg LVOT VTI 40.79 cm LVOT Peak Surjit. 173.7 cm/s CAIO(VTI)/BSA 2.42 cm2/m2 CAIO (VTI) 2.42 cm2 Tricuspid Valve TR P. Velocity 322 cm/s RAP ESTIMATE 10 mmHg TR Peak Gr. 42 mmHg RVSP 52 mmHg LEFT VENTRICLE Normal LV size and wall thickness. Overall systolic function is hyperdynamic. LVEF is 80-85%. RIGHT VENTRICLE Right ventricle is mildly dilated with adequate function. Elevated right pressures with an RVSP of 52 mmHg. ATRIA Left atrium is moderately dilated. AORTIC VALVE 23 mm David Darlene 3 Ultra Resilia bioprosthetic TAVR appears well seated with normal function. No paravalvular leak present, CAIO is measured at 2.42 cmsq. Peak / mean gradients of 39 / 24 mmHG. Peak velocity is measured at 3.10 m/sec. MITRAL VALVE Moderate mitral annular calcification without stenosis Mild regurgitation. TRICUSPID VALVE The tricuspid valve is normal in structure with mild regurgitation. GREAT VESSELS The aortic root is normal in size. PERICARDIUM Normal pericardium. No effusion. Other Information Study Quality: Adequate Conclusion Normal LV size and wall thickness. Overall systolic function is hyperdynamic. LVEF is 80-85%. Right ventricle is mildly dilated with adequate function. Elevated right pressures with an RVSP of 52 mmHg. Left atrium is moderately dilated. 23 mm David Darlene 3 Ultra Resilia bioprosthetic TAVR appears well seated with normal function. No paravalvular leak present, CAIO is measured at 2.42 cmsq. Peak / mean gradients of 39 / 24 mmHG. Peak velocity is measured at 3.10 m/sec. Moderate mitral annular calcification without stenosis Mild regurgitation. The tricuspid valve is normal in structure with mild regurgitation. Normal pericardium. No effusion.
[2025-01-13] MEDS: sacubitril/valsartan 24mg-26mg tablet PO ONE (13:01)
[2025-01-13] MEDS: POTASSIUM CHLORIDE 20 MEQ/15 ML oral solution PO PRN (13:03)
[2025-01-13] MEDS ORDERED: METO50TA16 PO (14:58)
[2025-01-13 15:00] VITALS: BP 132/67; PULSE 68; RESP 17; TEMP 98.3; O2SAT 94
== END 2025-01-13 17:20 | disposition home or self-care (01) | DRG 266 ==
LOC: PAS IN 05:53 → PCU 3S 12:51
PROVIDERS: ADMIT Internal Medicine Cardiovascular Disease; ATTEND Internal Medicine Cardiovascular Disease
PROC: B41D1ZZ Fluoroscopy of Aorta and Bilateral Lower Extremity Arteries using Low Osmolar Contrast (ICD-10-PCS; 2025-01-12)
PROC: 02RF38Z Replacement of Aortic Valve with Zooplastic Tissue, Percutaneous Approach (ICD-10-PCS; principal; 2025-01-12 08:36)
DX: I35.0 Nonrheumatic aortic (valve) stenosis (principal); Z00.6 Encounter for examination for normal comparison and control in clinical research program; I50.33 Acute on chronic diastolic (congestive) heart failure; I48.0 Paroxysmal atrial fibrillation; I11.0 Hypertensive heart disease with heart failure; Z88.1 Allergy status to other antibiotic agents; Z88.5 Allergy status to narcotic agent; Z91.09 Other allergy status, other than to drugs and biological substances
CPT/HCPCS: 33361; 36415; 71045; 71046; 76937; 80053; 81001; 82948; 83735; 83880; 85008; 85025; 85347; 85610; 85730; 86885; 86900; 86901; 86920; 87081; 93005; 93308; 94640; 94760; A4615; A6212; A6258; A6449; C1756; C1758; C1760; C1769; C1894; G0378; J0360; J0690; J1644; J2003; J2250; J2371; J2704; J2720; J3010; J3370; J3372; J3475; J3490; J7030; J7040; J7050; J7120; Q9967